=== PATIENT | female | born 1940 | race Caucasian/White ===

== ENCOUNTER 2019-02-09 02:40 | Inpatient (IN) ==
[2019-02-09] MEDS ORDERED: 0.9 % Sodium Chloride 1,000 ML IVC ONE (03:08)
[2019-02-09 03:35] LABS: Basophils # 0.1 K/mcL (0.0-0.2); Basophils % 0.3 %; Eosinophils # 0.2 K/mcL (0.0-0.6); Eosinophils % 1.4 %; Hematocrit 31.3 % (35.3-44.9); Hemoglobin 9.2 g/dL (11.5-15.4); Immature Granulocytes % 1.8 % (0-4); Lymphocytes # 1.4 K/mcL (0.6-4.6); Lymphocytes % 8.4 %; Mean Corpuscular HGB Conc 29.4 g/dL (31.6-35.5); Mean Corpuscular Hemoglobin 29.9 pg (28.0-33.3); Mean Corpuscular Volume 101.6 fL (83.0-100.0); Mean Platelet Volume 10.1 fL (9.4-12.4); Monocytes # 2.4 K/mcL (0.0-1.3); Neutrophils # 11.9 K/mcL (1.6-8.9); Platelet Count 228 K/mcL (140-400); Red Blood Count 3.08 M/mcL (3.82-4.97); Red Cell Distribution Width 17.9 % (11.5-14.5); Segmented Neutrophils % 73.1 %
[2019-02-09 03:47] LABS: INR 1.4; Prothrombin Time 15.3 Seconds (9.4-12.1)
[2019-02-09 03:50] LABS: Activated Partial Thrombo Time 31.1 Seconds (26.0-36.0)
[2019-02-09] MEDS: 0.9 % Sodium Chloride 1,000 ML ONE ×2 (03:50→05:11)
[2019-02-09] MEDS: 0.9 % Sodium Chloride 1,000 ML IVC SCH ×2 (03:50→05:13)
[2019-02-09 03:57] LABS: Albumin 3.1 g/dL (3.5-5.7); Albumin/Globulin Ratio 0.8 (1.1-2.2); Bilirubin,Direct 0.1 mg/dL (0.0-0.2); Bilirubin,Indirect 0.5 mg/dL (0.0-1.2); Bilirubin,Total 0.6 mg/dL (0.3-1.0); Magnesium 2.1 mg/dL (1.6-2.6); Phosphorous 5.4 mg/dL (2.7-4.5); Potassium 3.8 mEq/L (3.5-5.1); Total Protein 7.1 g/dL (6.4-8.9); Troponin I 0.03 ng/mL (< 0.04)
--- NOTE | 2019-02-09 04:17 | Emergency Department Note ---
Disposition Clinical Impression: Leukocytosis Qualifiers: Leukocytosis type: unspecified Qualified Code(s): D72.829 - Elevated white blood cell count, unspecified Anemia Qualifiers: Anemia type: unspecified type Qualified Code(s): D64.9 - Anemia, unspecified Disposition: Admitted As Inpatient Condition: Good General Adult HPI - General Chief complaint: ED General Medical Stated complaint: UTI / SEPSIS Time Seen by Provider: 02/09/19 02:47 Source: EMS Mode of arrival: EMS Limitations: altered mental status Nursing Notes Reviewed: Yes Vital Signs Reviewed: Yes - History of Present Illness HPI Narrative: 78-year-old from a local long term presents emergency department via EMS for evaluation of "possible UTI/sepsis". Patient is demented at baseline, history also includes chronic anemia, end-stage renal disease, hypertension, hyperlipidemia, hypothyroidism, cirrhosis, pelvic mass. Patient was recently admitted to our facility from 01/12/19 through 02/05/19. Patient is unable to give any detailed history, she states "I hurt". No real history given to us from the long term. Pain Scale: 0 - Related Data Home Medications Medication Instructions Recorded Confirmed Allopurinol [Zyloprim 100 MG] 100 mg PO BID 01/11/19 01/13/19 Cholecalciferol (Vitamin D3) 2,000 unit PO DAILY 01/11/19 01/13/19 [Vitamin D3] Gabapentin [Neurontin] 300 mg PO TID 01/11/19 01/13/19 Lactulose 20 gm PO DAILY PRN 01/11/19 01/13/19 Levothyroxine [Levothyroxine 137 mcg PO DAILY 01/11/19 01/13/19 Sodium] Sertraline [Zoloft] 100 mg PO DAILY 01/11/19 01/13/19 Metoprolol Tartrate [Lopressor] 50 mg PO BID 01/13/19 01/13/19 Previous Rx's Medication Instructions Recorded amLODIPine [Norvasc] 2.5 mg PO DAILY tablet 02/05/19 Allergies Allergy/AdvReac Type Severity Reaction Status Date / Time No Known Allergies Allergy Verified 02/09/19 04:34 Limitations: ROS unobtainable due to patients medical condition Past Medical History - Past Medical History Attestation: Yes The following information was validated with the patient. Source: old records reviewed Medical history: Reports: CHF, hepatitis, hyperlipidemia, hypertension, liver disease, renal disease, thyroid disease Surgical history: Reports: non-contributory Psychiatric history: Reports: no psych history - Social History Smoking Status: Never smoker Smokeless Tobacco Status: No Alcohol use: Reports: none Drug use: Reports: none Physical Exam - General Limitations: altered mental status General appearance: alert, in no apparent distress - Head Head exam: atraumatic, normocephalic, normal inspection - Eye Eye exam: Present: normal appearance - ENT ENT exam: mucous membranes dry - Neck Neck exam: Present: normal inspection, full ROM, trachea midline - Chest Chest inspection: Present: normal inspection, symmetric chest wall rise - Respiratory Respiratory exam: Present: normal lung sounds bilaterally - Cardiovascular Cardiovascular exam: Present: regular rate, normal rhythm, normal heart sounds - Abdominal Exam Abdominal exam: Present: soft, Non-Tender, normal bowel sounds - Extremities Exam Extremities exam: Present: normal inspection, full ROM. Absent: tenderness, pedal edema - Neurological Exam Neurological exam: Present: alert - Psychiatric Psychiatric exam: Present: normal affect, normal mood - Skin Skin exam: Present: warm, dry, intact, normal color Course Course Narrative: Nontoxic appearing female in no acute distress. She does appear dry, lips are slightly chapped. She arrives slightly hypotensive with systolic of 90, afebrile, non-tachycardic. EKG upon arrival which was completed 03:09 reveals a sinus rhythm with a chloride of 68 bpm, NM interval 166 seconds, QTC 414 ms. No evidence of ischemia, no acute change from previous which was completed on 01/12/19. Patient examination is unremarkable. She is demented, she answers questions not oriented. No evidence of infection to the skin. No abdominal pain, no peritoneal signs, no meningeal signs. Patient's recent admission, she was treated for hepatitis A, she was anemic which did require blood transfusions. She does have CHF which she also had an echo that shows 65% EF of 01/24. She was seen by gastrology, plan for an EGD due to the anemia requiring transfusion, during the previous admission the EGD did not happen. Patient has had recent UAs with an unremarkable culture, she does still make urine. She had a permacath placed while she was here previously. Due to his level of dementia being unknown, unknown ailments at the long term, hypertension we will complete sepsis workup, CT head, abdomen, chest x- ray. We will initiate fluid resuscitation for the hypotension. Patient is end- stage renal disease however, blood pressure is considerably lower than appears to be her baseline from previous admission. Will monitor fluid status to continue to monitor. - Reevaluation(s) Reevaluation #1: Labs returned with an elevated white blood cell count 16.2, patient with a chronic leukocytosis most likely related to the pelvic mass). Slightly above her baseline has been documented hemoglobin returns at 9.2, it was 10.2 and 5/1. Patient was transfused last time she was here for an anemia, most likely blood loss. There is a plan for EGD though this never did occur. CT the abdomen and pelvis, head all returned unremarkable, chest x-ray reveals pulmonary edema. We are still currently pending a UA as patient is in stay child. Does not make much urine, we have been unable to get it thus far. Vital signs are slowly impr oving with an increase in blood pressure with fluids being given. Headaches, visual change, diarrhea, vomiting. Workup benign for infectious etiology, patient is a 1 g drop in her hemoglobin, she has needed transfusions before. At this time disposition is plan for admission due to the drop in hem oglobin. Physical examination considerably unremarkable. Patient is alert, she does answer questions though sometimes they are coherent and other times they are not. Did discuss admission with her. Family has been notified by the long term patient's transfer to the hospital. I did speak with hospitalist Dr. Lawson, plan admission for the anemia, leukocytosis. Cultures of blood and urine have been ordered and continue to pen. Patient without any acute needs at this time. Time: 06:00 Vital Signs Temperature 98.8 F 02/09/19 02:48 Pulse Rate 71 02/09/19 02:48 Respiratory Rate 20 02/09/19 02:48 Blood Pressure 90/62 02/09/19 02:48 O2 Sat by Pulse Oximetry 88 02/09/19 02:48 Temperature 98.4 F 02/09/19 18:53 Pulse Rate 74 02/09/19 18:53 Respiratory Rate 18 02/09/19 18:53 Blood Pressure 98/54 02/09/19 18:53 O2 Sat by Pulse Oximetry 95 02/09/19 18:53 Oxygen Delivery Oxygen Delivery Nasal Cannula Medical Decision Making - Medical Records Medical records reviewed: Yes I reviewed the patient's medical records. - Lab Data Lab results reviewed: Yes I reviewed the patient's lab results. Result diagrams: 02/09/19 18:29 02/09/19 03:15 Lab Results 02/09/19 02/09/19 02/09/19 Range/Units 03:15 03:15 03:15 WBC 16.2 H (4.3-11.1) K/mcL RBC 3.08 L (3.82-4.97) M/mcL Hgb 9.2 L (11.5-15.4) g/dL Hct 31.3 L (35.3-44.9) % MCV 101.6 H (83.0-100.0) fL MCH 29.9 (28.0-33.3) pg MCHC 29.4 L (31.6-35.5) g/dL RDW 17.9 H (11.5-14.5) % Plt Count 228 (140-400) K/mcL MPV 10.1 (9.4-12.4) fL Immature Gran % 1.8 (0-4) % Seg Neutrophils % 73.1 % Lymphocytes % 8.4 % Monocytes % 15.0 % Eosinophils % 1.4 % Basophils % 0.3 % Neutrophils # 11.9 H (1.6-8.9) K/mcL Lymphocytes # 1.4 (0.6-4.6) K/mcL Monocytes # 2.4 H (0.0-1.3) K/mcL Eosinophils # 0.2 (0.0-0.6) K/mcL Basophils # 0.1 (0.0-0.2) K/mcL PT 15.3 H (9.4-12.1) Seconds INR 1.4 APTT 31.1 (26.0-36.0) Seconds Sodium 137 (136-145) mEq/L Potassium 3.8 (3.5-5.1) mEq/L Chloride 98 (98-107) mEq/L Carbon Dioxide 28 (23-29) mEq/L BUN 24 H (8-23) mg/dL Creatinine 5.31 H (0.60-1.20) mg/dL Est GFR ( Amer) 9 L (> 60) Est GFR (Non-Af Amer) 8 L (> 60) BUN/Creatinine Ratio 5 L (6-26) Glucose 97 (70-105) mg/dL Calculated Osmolality 288 (280-300) Lactic Acid (0.5-2.2) mmol/L Calcium 9.0 (8.6-10.3) mg/dL Phosphorus 5.4 H (2.7-4.5) mg/dL Magnesium 2.1 (1.6-2.6) mg/dL Total Bilirubin 0.6 (0.3-1.0) mg/dL Direct Bilirubin 0.1 (0.0-0.2) mg/dL Indirect Bilirubin 0.5 (0.0-1.2) mg/dL AST 45 H (13-39) Units/L ALT 4 L (7-52) Units/L Alkaline Phosphatase 60 (34-104) Units/L Troponin I 0.03 (< 0.04) ng/mL C-Reactive Protein 139 H (Less than 10) mg/L Serum Total Protein 7.1 (6.4-8.9) g/dL Albumin 3.1 L (3.5-5.7) g/dL Globulin 4.0 H (2.4-3.5) g/dL Albumin/Globulin Ratio 0.8 L (1.1-2.2) Blood Type Antibody Screen 02/09/19 02/09/19 Range/Units 03:15 05:25 WBC (4.3-11.1) K/mcL RBC (3.82-4.97) M/mcL Hgb (11.5-15.4) g/dL Hct (35.3-44.9) % MCV (83.0-100.0) fL MCH (28.0-33.3) pg MCHC (31.6-35.5) g/dL RDW (11.5-14.5) % Plt Count (140-400) K/mcL MPV (9.4-12.4) fL Immature Gran % (0-4) % Seg Neutrophils % % Lymphocytes % % Monocytes % % Eosinophils % % Basophils % % Neutrophils # (1.6-8.9) K/mcL Lymphocytes # (0.6-4.6) K/mcL Monocytes # (0.0-1.3) K/mcL Eosinophils # (0.0-0.6) K/mcL Basophils # (0.0-0.2) K/mcL PT (9.4-12.1) Seconds INR APTT (26.0-36.0) Seconds Sodium (136-145) mEq/L Potassium (3.5-5.1) mEq/L Chloride (98-107) mEq/L Carbon Dioxide (23-29) mEq/L BUN (8-23) mg/dL Creatinine (0.60-1.20) mg/dL Est GFR ( Amer) (> 60) Est GFR (Non-Af Amer) (> 60) BUN/Creatinine Ratio (6-26) Glucose (70-105) mg/dL Calculated Osmolality (280-300) Lactic Acid 1.4 (0.5-2.2) mmol/L Calcium (8.6-10.3) mg/dL Phosphorus (2.7-4.5) mg/dL Magnesium (1.6-2.6) mg/dL Total Bilirubin (0.3-1.0) mg/dL Direct Bilirubin (0.0-0.2) mg/dL Indirect Bilirubin (0.0-1.2) mg/dL AST (13-39) Units/L ALT (7-52) Units/L Alkaline Phosphatase (34-104) Units/L Troponin I (< 0.04) ng/mL C-Reactive Protein (Less than 10) mg/L Serum Total Protein (6.4-8.9) g/dL Albumin (3.5-5.7) g/dL Globulin (2.4-3.5) g/dL Albumin/Globulin Ratio (1.1-2.2) Blood Type A POSITIVE Antibody Screen NEGATIVE - Radiology Data Radiology results reviewed: Yes I reviewed the patient's radiology results. 78-year-old nontoxic-appearing female with baseline dementia. detention concerned for infection as patient was more confused than normal. Workup included labs, chest x-ray, head CT, abdomen and pelvis CT, all unremarkable for infectious etiology or acute abnormality. Labs did reveal 1 g drop in hemoglobin, she is require blood transfusion before and was unable to complete the EGD and workup previously, admitted to hospital for the anemia and continuation of care. Chest X-Ray 02/09/19 03:37 IMPRESSION: Pulmonary edema. D/ / Kentrell Martinez MD / Kentrell Martinez MD Interpreting Provider: Kentrell Martinez MD Head CT 02/09/19 03:37 IMPRESSION: 1. No acute intracranial abnormality. 2. Diffuse cerebral atrophy with chronic small vessel ischemic disease. D/ / Alejo Bryson MD / Alejo Bryson MD Interpreting Provider: Alejo Bryson MD Abdomen/Pelvis CT 02/09/19 04:04 IMPRESSION: 1. No change in the poorly defined soft tissue in the pelvis. This may simply represent unopacified small bowel though a repeat examination with both intravenous and oral contrasts is once again recommended for further evaluation. 2. No acute findings in the abdomen or pelvis. D/ / Kentrell Matrinez MD / Kentrell Martinez MD Interpreting Provider: Kentrell Martinez MD Attestation Statement - Attestation Attestation: I, Montez Parker DO have provided [id number] time during the care of this patient. Detailed review the presentation, symptoms, medical history were discussed and reviewed with the advanced practice provider Lilli Gatica/[employer]. Medical intervention labs and imaging studies were reviewed in detail. See full documentation of physical exam and course of care in the advanced practice provider's note. I agree with the determined course of care, medical intervention and disposition put forth by the advanced practice provider. See below documentation for changes or alterations in documentation.
--- NOTE | 2019-02-09 04:38 | Emergency Department Note ---
Disposition Clinical Impression: Leukocytosis Qualifiers: Leukocytosis type: unspecified Qualified Code(s): D72.829 - Elevated white blood cell count, unspecified Anemia Qualifiers: Anemia type: unspecified type Qualified Code(s): D64.9 - Anemia, unspecified Disposition: Admitted As Inpatient Condition: Good Time of Disposition: 06:25 General Adult HPI - General Chief complaint: ED General Medical Stated complaint: UTI / SEPSIS Time Seen by Provider: 02/09/19 02:47 Source: EMS Mode of arrival: EMS Limitations: altered mental status - History of Present Illness Pain Scale: 0 - Related Data Home Medications Medication Instructions Recorded Confirmed Allopurinol [Zyloprim 100 MG] 100 mg PO BID 01/11/19 01/13/19 Cholecalciferol (Vitamin D3) 2,000 unit PO DAILY 01/11/19 01/13/19 [Vitamin D3] Gabapentin [Neurontin] 300 mg PO TID 01/11/19 01/13/19 Lactulose 20 gm PO DAILY PRN 01/11/19 01/13/19 Levothyroxine [Levothyroxine 137 mcg PO DAILY 01/11/19 01/13/19 Sodium] Sertraline [Zoloft] 100 mg PO DAILY 01/11/19 01/13/19 Metoprolol Tartrate [Lopressor] 50 mg PO BID 01/13/19 01/13/19 Previous Rx's Medication Instructions Recorded amLODIPine [Norvasc] 2.5 mg PO DAILY tablet 02/05/19 Allergies Allergy/AdvReac Type Severity Reaction Status Date / Time No Known Allergies Allergy Verified 02/09/19 04:34 Past Medical History - Past Medical History Medical history: Reports: CHF, hepatitis, hyperlipidemia, hypertension, liver disease, renal disease, thyroid disease Surgical history: Reports: non-contributory Psychiatric history: Reports: no psych history - Social History Smoking Status: Never smoker Smokeless Tobacco Status: No Alcohol use: Reports: none Drug use: Reports: none Physical Exam - General Limitations: altered mental status General appearance: alert, in no apparent distress Course Vital Signs Temperature 98.8 F 02/09/19 02:48 Pulse Rate 71 02/09/19 02:48 Respiratory Rate 20 02/09/19 02:48 Blood Pressure 90/62 02/09/19 02:48 O2 Sat by Pulse Oximetry 88 02/09/19 02:48 Temperature 98.8 F 02/09/19 02:48 Pulse Rate 70 02/09/19 05:36 Respiratory Rate 24 02/09/19 05:36 Blood Pressure 105/57 02/09/19 05:36 O2 Sat by Pulse Oximetry 95 02/09/19 05:36 Oxygen Delivery Oxygen Delivery Nasal Cannula Medical Decision Making - Lab Data Result diagrams: 02/09/19 03:15 02/09/19 03:15 Lab Results 02/09/19 02/09/19 02/09/19 Range/Units 03:15 03:15 03:15 WBC 16.2 H (4.3-11.1) K/mcL RBC 3.08 L (3.82-4.97) M/mcL Hgb 9.2 L (11.5-15.4) g/dL Hct 31.3 L (35.3-44.9) % MCV 101.6 H (83.0-100.0) fL MCH 29.9 (28.0-33.3) pg MCHC 29.4 L (31.6-35.5) g/dL RDW 17.9 H (11.5-14.5) % Plt Count 228 (140-400) K/mcL MPV 10.1 (9.4-12.4) fL Immature Gran % 1.8 (0-4) % Seg Neutrophils % 73.1 % Lymphocytes % 8.4 % Monocytes % 15.0 % Eosinophils % 1.4 % Basophils % 0.3 % Neutrophils # 11.9 H (1.6-8.9) K/mcL Lymphocytes # 1.4 (0.6-4.6) K/mcL Monocytes # 2.4 H (0.0-1.3) K/mcL Eosinophils # 0.2 (0.0-0.6) K/mcL Basophils # 0.1 (0.0-0.2) K/mcL PT 15.3 H (9.4-12.1) Seconds INR 1.4 APTT 31.1 (26.0-36.0) Seconds Sodium 137 (136-145) mEq/L Potassium 3.8 (3.5-5.1) mEq/L Chloride 98 (98-107) mEq/L Carbon Dioxide 28 (23-29) mEq/L BUN 24 H (8-23) mg/dL Creatinine 5.31 H (0.60-1.20) mg/dL Est GFR ( Amer) 9 L (> 60) Est GFR (Non-Af Amer) 8 L (> 60) BUN/Creatinine Ratio 5 L (6-26) Glucose 97 (70-105) mg/dL Calculated Osmolality 288 (280-300) Lactic Acid (0.5-2.2) mmol/L Calcium 9.0 (8.6-10.3) mg/dL Phosphorus 5.4 H (2.7-4.5) mg/dL Magnesium 2.1 (1.6-2.6) mg/dL Total Bilirubin 0.6 (0.3-1.0) mg/dL Direct Bilirubin 0.1 (0.0-0.2) mg/dL Indirect Bilirubin 0.5 (0.0-1.2) mg/dL AST 45 H (13-39) Units/L ALT 4 L (7-52) Units/L Alkaline Phosphatase 60 (34-104) Units/L Troponin I 0.03 (< 0.04) ng/mL Serum Total Protein 7.1 (6.4-8.9) g/dL Albumin 3.1 L (3.5-5.7) g/dL Globulin 4.0 H (2.4-3.5) g/dL Albumin/Globulin Ratio 0.8 L (1.1-2.2) /02/23 Range/Units 03:15 WBC (4.3-11.1) K/mcL RBC (3.82-4.97) M/mcL Hgb (11.5-15.4) g/dL Hct (35.3-44.9) % MCV (83.0-100.0) fL MCH (28.0-33.3) pg MCHC (31.6-35.5) g/dL RDW (11.5-14.5) % Plt Count (140-400) K/mcL MPV (9.4-12.4) fL Immature Gran % (0-4) % Seg Neutrophils % % Lymphocytes % % Monocytes % % Eosinophils % % Basophils % % Neutrophils # (1.6-8.9) K/mcL Lymphocytes # (0.6-4.6) K/mcL Monocytes # (0.0-1.3) K/mcL Eosinophils # (0.0-0.6) K/mcL Basophils # (0.0-0.2) K/mcL PT (9.4-12.1) Seconds INR APTT (26.0-36.0) Seconds Sodium (136-145) mEq/L Potassium (3.5-5.1) mEq/L Chloride (98-107) mEq/L Carbon Dioxide (23-29) mEq/L BUN (8-23) mg/dL Creatinine (0.60-1.20) mg/dL Est GFR ( Amer) (> 60) Est GFR (Non-Af Amer) (> 60) BUN/Creatinine Ratio (6-26) Glucose (70-105) mg/dL Calculated Osmolality (280-300) Lactic Acid 1.4 (0.5-2.2) mmol/L Calcium (8.6-10.3) mg/dL Phosphorus (2.7-4.5) mg/dL Magnesium (1.6-2.6) mg/dL Total Bilirubin (0.3-1.0) mg/dL Direct Bilirubin (0.0-0.2) mg/dL Indirect Bilirubin (0.0-1.2) mg/dL AST (13-39) Units/L ALT (7-52) Units/L Alkaline Phosphatase (34-104) Units/L Troponin I (< 0.04) ng/mL Serum Total Protein (6.4-8.9) g/dL Albumin (3.5-5.7) g/dL Globulin (2.4-3.5) g/dL Albumin/Globulin Ratio (1.1-2.2) Attestation Statement - Attestation Attestation: I, Montez Parker DO have provided [id number] time during the care of this patient. Detailed review the presentation, symptoms, medical history were discussed and reviewed with the advanced practice provider Lilli Gatica/[employer]. Medical intervention labs and imaging studies were reviewed in detail. See full documentation of physical exam and course of care in the advanced practice provider's note. I agree with the determined course of care, medical intervention and disposition put forth by the advanced practice provider. See below documentation for changes or alterations in documentation. 78-year-old female presents emergency room from [facility] facility for concern of confusion and urinary tract infection. Patient was just discharged on February 05 from this facility after being an inpatient in the hospital for almost 1 month. On arrival here the patient is confused. Her blood pressure is labile. Her heart rate is normal. Patient is denying any falls trauma or injury. Denies any fevers or chills at home. She has not had any nausea vomiting or diarrhea. No headache no vision change. Denies any new medications or change in medications over the last several days. Head is atraumatic. Pupils are equal and reactive. Extraocular muscles are intact. Mucous membranes are dry. Oropharynx is patent. Trachea is midline. No murmurs auscultated on exam. Heart rate is normal. Lungs are clear. Abdomen is soft nontender nondistended with no point tenderness guarding or rigidity on initial physical exam. Patient denies any burning with urination. She does have anterior right-sided chest wall port in place for dialysis. No redness warmth or erythema is noted on my evaluation. Beckett otherwise normal. No signs of pitting edema. Urinalysis along with CBC chemistry troponin will be collected. Blood cultures will be added on. CT imaging of the head along with CT of the abdomen and chest x-ray will be ordered secondary to the patient's confusion and possible urinary tract infection and as well as multiple medical issues that were noted during the previous hospitalization. Disposition to be determined once full workup and treatment course I been established. See detailed documentation the physical exam, medical intervention, medical decision-making disposition in the advanced practice provider's note. 0600 Patient has elevated white blood cell count. No other acute etiology noted on CT the head or CT the abdomen. Patient is a 1 g drop in her hemoglobin. She was admitted for blood transfusions in the past. Otherwise patient's mentation appears to be at baseline. She has no acute infectious source noted at this point. Patient was discussed with the hospitalist Dr. Lawson and recommended no antibiotics at this time. Patient will be monitored here the emergency department to the admission process is completed. So this could be secondary to the patient's baseline dementia as well as possible other metabolic derangements. She will be monitored here in the emergency department during the treatment course. Patient is otherwise stable at this time.
[2019-02-09] MEDS ORDERED: Naloxone 0.4 MG/ML INJ IVP PRN (07:25)
[2019-02-09 07:58] LABS: Immature Reticulocyte % 22.8 % (11.0-38.0); Retculocyte # 0.09 M/mcL (0.05-0.10); Reticulocyte % 3.2 % (1.6-2.8)
[2019-02-09] MEDS ORDERED: Vancomycin 1 EACH in EMPTY BAG 1 EACH IVPB SCH (08:00)
[2019-02-09] MEDS: Piperacillin/Tazobactam 3.375 GM in 0.9 % Sodium Chloride Mini Bag 100 ML IVPB SCH ×2 (08:11→18:11)
--- NOTE | 2019-02-09 08:12 | Internal Med History&Physical ---
Date of Encounter: 02/09/19 Time of Encounter: 07:00 Internal Medicine - H&P: HPI Chief complaint: AMS Admitted From: Long-term Nursing Facility Plans for Post Hospital Care: Transfer [facility] History of present illness: Ms. Justin Bowers is a 78 year old female with history of cirrhosis, ESRD on HD, HFpEF 65% and pelvic mass following at [facility] who presented to the ED with complaint of AMS. history is limited due to mental status. most of the history was obtained chart. as per chart review she was recently admitted to [facility] in january and discharged on february 05. she was treated for acute metabolic encephal opathy secondary to PNA and UTI with improvement of her mental status. she has a known pelvic mass and as per oncology recs and chart review she was to follow with [facility] for further evaluation and biopsy of the mass. last admission she was also found to have cirrhosis and acute hepatitis A infection and G was consulted who recommended conservative management. in the ED she was found to have leukocytosis with neutrophilic predominance and she complained of burning and pain while urinating. she was endorsed for admission for UTI and acute encephalopathy. CT head in the ED negative for any acute disease. patient was seen and examined at bedside axox0, unable to provide any information. but when asked if she has pain she points to her pelvic region. how she is feeling she responds "have my son bring me a six pack". as per chart review on 02/05 she was axox3. nursing staff who know the patient well from her prolonged hospitaliation report that last admission she was confused similar to this time which improved as her UTI resolved. as per chart review palliative was consulted on last admission and as per last note code status was full. Past Med Surg Social Fam HX - Past Medical History Medical history: CHF, hepatitis, hyperlipidemia, hypertension, liver disease, renal disease, thyroid disease Additional medical history: unable to ask patient her medical hx, shes not a/o x3 to answer qustions. Psychiatric history: no psych history - Past Surgical History Surgical History: non-contributory Additional surgical history: unable to ask patient her medical hx, shes not a/o x3 to answer qustions. - Social History Smoking Status: Never smoker Smokeless Tobacco Status: No Alcohol use: none Drug use: none Internal Medicine - H&P: Meds Allopurinol [Zyloprim 100 MG] 100 mg PO BID 01/11/19 [History] Cholecalciferol (Vitamin D3) [Vitamin D3] 2,000 unit PO DAILY 01/11/19 [History] Gabapentin [Neurontin] 300 mg PO TID 01/11/19 [History] Lactulose 20 gm PO DAILY PRN 01/11/19 [History] Levothyroxine [Levothyroxine Sodium] 137 mcg PO DAILY 01/11/19 [History] Sertraline [Zoloft] 100 mg PO DAILY 01/11/19 [History] Metoprolol Tartrate [Lopressor] 50 mg PO BID 01/13/19 [History] amLODIPine [Norvasc] 2.5 mg PO DAILY tablet 02/05/19 [Rx] Allergy/AdvReac Type Severity Reaction Status Date / Time No Known Allergies Allergy Verified 02/09/19 04:34 ROS unobtainable: due to mental status All Systems PM: unable to obtain due to mental status - Constitutional Vitals: Temp Pulse Resp BP Pulse Ox 98.8 F 70 24 105/57 95 02/09/19 02:48 02/09/19 05:36 02/09/19 05:36 02/09/19 05:36 02/09/19 05:36 Exam: General: Patient is pale, not oriented however alert, speech is comprehendible however she is confused. Head: atraumatic, normocephalic, Eye: normal appearance, PERRL, no scleral icterus, no conjunctival injection ENT: mucous membranes moist, normal external ear exam Neck: normal inspection, trachea midline, full ROM, no neck stiffness Chest: normal inspection, symmetric chest rise Respiratory: decreased breasth sounds secondary to body habitus crackles in the posterior chest no wheezing Cardiovascular: distant heart sounds secondary to body habitus, Regular rate and rhythm. s1 and s2 Abdomen: obese, Bowel sounds present normoactive x-4 quadrants. Abdomen is soft, nondistended. no Epigastric tenderness. No guarding or rebound. No organomegaly noted, obese musculoskeletal: Spontaneously moving all extremities. no edema, no calf tenderness Skin: warm, dry, intact. Neuro: Alert and oriented x0 confused, speech in comprehendible. she is moving all extremities, CN2-12 intact, has tremors on out stretched hands Psych: Patient's affect is normal Internal Med - H&P Results - Labs CBC & Chem 7: 02/09/19 03:15 02/09/19 03:15 Labs: Short CBC 02/09/19 Range/Units 03:15 WBC 16.2 H (4.3-11.1) K/mcL Hgb 9.2 L (11.5-15.4) g/dL Hct 31.3 L (35.3-44.9) % Plt Count 228 (140-400) K/mcL Neutrophils # 11.9 H (1.6-8.9) K/mcL BMP 02/09/19 03:15 Sodium 137 Potassium 3.8 Chloride 98 Carbon Dioxide 28 BUN 24 H Creatinine 5.31 H Glucose 97 Calcium 9.0 Cardiac Enzymes 02/09/19 Range/Units 03:15 Troponin I 0.03 (< 0.04) ng/mL Liver Function 02/09/19 Range/Units 03:15 Total Bilirubin 0.6 (0.3-1.0) mg/dL Direct Bilirubin 0.1 (0.0-0.2) mg/dL AST 45 H (13-39) Units/L ALT 4 L (7-52) Units/L Alkaline Phosphatase 60 (34-104) Units/L Albumin 3.1 L (3.5-5.7) g/dL - EKG Data -: EKG Interpreted by Myself EKG shows normal: sinus rhythm (PAC, nonspecific ST-t changes ) - EKG Data Prior EKG available for review: yes When compared to previous EKG: there is no significant change - Impressions ITS Impressions Chest X-Ray 02/09/19 03:37 IMPRESSION: Pulmonary edema. D/ / Kentrell Martinez MD / Kentrell Martinez MD Interpreting Provider: Kentrell Martinez MD Head CT 02/09/19 03:37 IMPRESSION: 1. No acute intracranial abnormality. 2. Diffuse cerebral atrophy with chronic small vessel ischemic disease. D/ / Alejo Bryson MD / Alejo Bryson MD Interpreting Provider: Alejo Bryson MD Abdomen/Pelvis CT 02/09/19 04:04 IMPRESSION: 1. No change in the poorly defined soft tissue in the pelvis. This may simply represent unopacified small bowel though a repeat examination with both intravenous and oral contrasts is once again recommended for further evaluation. 2. No acute findings in the abdomen or pelvis. D/ / Kentrell Martinez MD / Kentrell Martinez MD Interpreting Provider: Kentrell Martinez MD - Assessment and Plan (1) Acute encephalopathy Current Visit: Yes Status: Acute Assessment and plan: acute encephalopathy most likley from hyperammonemia/ cirrhosis and UTI ruled out acute stroke head CT negative for acute abnormality in the ED was recently admitted for similar symptoms which improvement after UTI was treated ammonia and UA STAT started on broad spectrum Abx ( has history of UTI with Ecoli and enterococcus) neurochecks Q4H thiamine and folic acid procalcitonin, ESR and CRP TSH, cortisol level ordered aspiration, fall, seizure precautions NPO except meds - [employer] consulted . elevate HOB if no improvement in mental status or if she develops fever consider LP Ct head 02/09/2019- IMPRESSION: 1. No acute intracranial abnormality. 2. Diffuse cerebral atrophy with chronic small vessel ischemic disease. MRI 01/2019- IMPRESSION: No acute intracranial abnormality. Mild to moderate chronic microvascular ischemic disease. (2) Diastolic CHF Current Visit: No Status: Acute Assessment and plan: acute on chronic diastolic HF EF was 65% in january CXR with pulmonary edema nephrology consulted for dialysis continue with home medications if not CI fluid restriction TTE on 01/2019 Impressions: LVEF 65%. Indeterminate diastolic function. Normal right ventricular structure and function. Moderate mitral regurgitation. Moderate-severe tricuspid regurgitation. Mild pulmonic regurgitation. Moderate pulmonary hypertension. Qualifiers: Heart failure chronicity: acute on chronic Qualified Code(s): I50.33 - Acute on chronic diastolic (congestive) heart failure (3) ESRD (end stage renal disease) on dialysis Current Visit: Yes Status: Acute Assessment and plan: ESRD on dialysis [facility] Nephrology requested perm-a-cath placement and placed 02/04/19 hyperphosphatemia secondry to ESRD nephrology consulted will follow recommendations. (4) Leukocytosis, unspecified Current Visit: Yes Status: Acute Assessment and plan: has had hronic leukocytosis was discharegd with wbc count of 15 on feb 05 2019 after finishing course of Abx for PNA currently WBC count is 16.2 with neutrophilic predominance ? secondary UTI ( has dysuria and burning) started on broad spectrum abx blood cx sent ESR, CRP, procalcitonin ordered consider ID consultation Qualifiers: Leukocytosis type: unspecified Qualified Code(s): D72.829 - Elevated white blood cell count, unspecified (5) Anemia Current Visit: Yes Status: Chronic Assessment and plan: Likely multifactorial, with CKD, anemia of chronic disease and possible underlying malignancy. Will continue to monitor H/H No acute bleeding reported at this time, FOBT was negative on last admission reticulocyte count, flaote, b12 and iron panel ordered continue to closely monitor and will transfuse if needed for Hgb<7 type and screen Qualifiers: Anemia type: unspecified type Qualified Code(s): D64.9 - Anemia, unspecified (6) UTI (urinary tract infection) Current Visit: No Status: Acute Assessment and plan: has symptoms of UTI, complains of pelvic pain and burning along with dysuria on zosyn UA ordered stat Qualifiers: Urinary tract infection type: site unspecified Hematuria presence: without hematuria Qualified Code(s): N39.0 - Urinary tract infection, site not specified (7) Cirrhosis Current Visit: No Status: Acute Assessment and plan: cirrhosis and recent hep A infection in january 2019 MELD-NA 19 and Child-Caraballo class B. AFP 3 on 01/13. RUQ US on last admission showed cirrhosis, no lesions noted, cholelithiasis. continue lactulose therapy, titrate for 3-4 BM daily Qualifiers: Hepatic cirrhosis type: unspecified hepatic cirrhosis Ascites presence: without ascites Qualified Code(s): K74.60 - Unspecified cirrhosis of liver (8) Hypothyroidism Current Visit: Yes Status: Acute Assessment and plan: TSH ordered continue with synthroid Qualifiers: Hypothyroidism type: acquired Qualified Code(s): E03.9 - Hypothyroidism, unspecified (9) Pelvic mass in female Current Visit: No Status: Chronic Assessment and plan: as seen on CT a/p on 02/09- full report below No tissue diagnosis as of yet as per previous documentation from last adission in January 2019 "Hypermetabolic pelvic mass noted on PET scan from [facility]. No GI source found on colonoscopy at [facility] on December 2018. Heterogeneous hypermetabolic activity noted in liver and lymph node in neck on pad scan at [facility]. Oncologist on board and plan to follow-up with [facility] oncology department " (10) Goals of care, counseling/discussion Current Visit: No Status: Acute Assessment and plan: palliative care consult will call Giovanni, contact information - and Home # [phone] code status was full on last admission jail prognosis is poor (11) DVT prophylaxis Current Visit: No Status: Acute Assessment and plan: scds - Time Spent With Patient Total time spent is greater than 50% in coordination of care (as documented) at patient's floor/unit and/or counseling patient:
[2019-02-09 08:40] LABS: Folate 6.3 ng/mL (3.0-16.0)
[2019-02-09 10:22] LABS: Thyroid Stimulating Hormone 2.41 mcIU/mL (0.340-5.600)
[2019-02-09] MEDS: Cholecalciferol (D-3) 1,000 UNIT TABLET PO SCH (10:36)
[2019-02-09] MEDS: Thiamine (B-1) 100 MG TABLET PO SCH (10:36)
[2019-02-09] MEDS: Folic Acid 1 MG TABLET PO SCH (10:36)
[2019-02-09] MEDS: Lactulose Oral Soln 20 GM/30 ML UDC PO SCH ×2 (10:37→20:10)
--- NOTE | 2019-02-09 17:34 | Nephrology Consult Note ---
Date of Encounter: 02/09/19 Time of Encounter: 12:00 Assessment and Plan (1) Acute encephalopathy Current Visit: Yes Status: Acute Per primary (2) Acute kidney injury superimposed on CKD Current Visit: No Status: Acute SCr consistent with continued CHANI which was HD dependent during last stay, will arrange for HD in the am with UF as tolerated Renal diet advised Lytes stable, phos at 5.4 is within acceptable range for renal failure (3) CKD (chronic kidney disease), stage IV Current Visit: No Status: Chronic Baseline GFR was in the 20s (4) Leukocytosis, unspecified Current Visit: Yes Status: Acute per primary team Qualifiers: Leukocytosis type: unspecified Qualified Code(s): D72.829 - Elevated white blood cell count, unspecified (5) Anemia Current Visit: Yes Status: Chronic Per primary, will monitor at 9.2 Qualifiers: Anemia type: unspecified type Qualified Code(s): D64.9 - Anemia, unspecified History of Present Illness - Reason for Consult Consult date: 02/09/19 Acute Kidney Injury Requesting physician: Anna Oliver - History of Present Illness 78 y o female with PMH of liver cirrhosis, ovarian cancer with known pelvic mass, HTN, CHF and HD dependent CHANI from last prolonged admission and just discharged, returning with altered mental status from [facility] just like previous stay. Renal consulted for dialysis managment. Pt seen and examined with no family at bedside. Pt is very confused and disoriented with most of the i nfomation obtained from records Past Med Surg Social Fam HX - Past Medical History Medical history: CHF, hepatitis, hyperlipidemia, hypertension, liver disease, renal disease, thyroid disease Additional medical history: unable to ask patient her medical hx, shes not a/o x3 to answer qustions. Psychiatric history: no psych history - Past Surgical History Surgical History: non-contributory Additional surgical history: unable to ask patient her medical hx, shes not a/o x3 to answer qustions. - Social History Smoking Status: Never smoker Smokeless Tobacco Status: No Alcohol use: none Drug use: none Medications and Allergies Allopurinol [Zyloprim 100 MG] 100 mg PO BID 01/11/19 [History] Cholecalciferol (Vitamin D3) [Vitamin D3] 2,000 unit PO DAILY 01/11/19 [History] Gabapentin [Neurontin] 300 mg PO TID 01/11/19 [History] Lactulose 20 gm PO DAILY PRN 01/11/19 [History] Levothyroxine [Levothyroxine Sodium] 137 mcg PO DAILY 01/11/19 [History] Sertraline [Zoloft] 100 mg PO DAILY 01/11/19 [History] Metoprolol Tartrate [Lopressor] 50 mg PO BID 01/13/19 [History] amLODIPine [Norvasc] 2.5 mg PO DAILY tablet 02/05/19 [Rx] Allergy/AdvReac Type Severity Reaction Status Date / Time No Known Allergies Allergy Verified 02/09/19 04:34 Review of Systems ROS unobtainable: due to mental status Exam - Vital Signs Vital signs: Initial Vital Signs Temp Pulse Resp BP Pulse Ox 98.8 F 71 20 90/62 88 02/09/19 02:48 02/09/19 02:48 02/09/19 02:48 02/09/19 02:48 02/09/19 02:48 Vital Signs - Last 8 Hours Temp Pulse Resp BP Pulse Ox 02/09/19 16:17 98.2 F 76 18 102/44 92 02/09/19 10:59 98.4 F 68 16 92/56 98 Intake and Output 02/09/19 02/09/19 02/09/19 07:59 15:59 23:59 Intake Total 1999 / 2590 590 / 2590 Balance 1999 / 2590 590 / 2590 Intake: IV Fluids 1999 / 2350 350 / 2350 0.9 % Sodium Chloride 1,000 ML 1999 / 1999 @ 999 mls/hr IVC .Q1H1M [facility] Rx# :[id number] Zosyn 3.375 GM In 0.9 % Sodium 100 / 100 Chloride (Mini-Bag +) 100 ML @ 25 mls/hr IVPB Q12HR [facility] Rx#: [id number] Vancocin 1,000 MG In 0.9 % 250 / 250 Sodium Chloride 250 ML @ 166. 667 mls/hr IVPB ONCE ONE Rx#: [id number] Oral 240 / 240 Other: Meal Breakfast Percent of Meal Consumed 95% Weight 93.259 kg 90.3 kg Blood Glucose* 97 Patient Weight 02/09/19 23:59 Weight 90.3 kg - General Appearance General appearance: chronically ill, fatigue, frail EENT: ATNC, mucous membranes dry Neck: no JVD, supple Additional Comments: good areation ant bilat Cardiology: no edema, normal S1, normal S2 - Dialysis Access Dialysis Vascular Access: Venous Catheter (permcath) Gastrointestinal: no tenderness, no guarding Integumentary: warm and dry Neurologic: confused, disoriented Musculoskeletal: no deformities Psychiatric: cooperative Results - Lab Results 02/09/19 03:15 02/09/19 03:15 Most recent lab results 02/09/19 03:15 Calcium 9.0 Phosphorus 5.4 H Magnesium 2.1 Consult Discharge Plan - Plan Referrals: Monalisa Schneider MD [Primary Care Provider] -
[2019-02-09] MEDS ORDERED: Acetaminophen 325 MG TABLET PO ONE (17:49)
[2019-02-09] MEDS ORDERED: Ketorolac 15 MG/ML VIAL IVP ONE (18:53)
[2019-02-09 18:55] LABS: Hemoglobin 9.3 g/dL (11.5-15.4)
[2019-02-10 02:40] LABS: Hematocrit 26.4 % (35.3-44.9); Hemoglobin 7.8 g/dL (11.5-15.4); Mean Corpuscular HGB Conc 29.5 g/dL (31.6-35.5); Mean Corpuscular Hemoglobin 30.1 pg (28.0-33.3); Mean Corpuscular Volume 101.9 fL (83.0-100.0); Mean Platelet Volume 10.2 fL (9.4-12.4); Platelet Count 218 K/mcL (140-400); Red Blood Count 2.59 M/mcL (3.82-4.97); Red Cell Distribution Width 17.5 % (11.5-14.5)
[2019-02-10 02:59] LABS: Calcium 8.5 mg/dL (8.6-10.3)
[2019-02-10] MEDS: Piperacillin/Tazobactam 3.375 GM in 0.9 % Sodium Chloride Mini Bag 100 ML IVPB SCH ×2 (06:36→18:51)
[2019-02-10] MEDS ORDERED: 0.9 % Sodium Chloride 2,000 ML ONE (08:38)
[2019-02-10] MEDS: Thiamine (B-1) 100 MG TABLET PO SCH (09:13)
[2019-02-10] MEDS: Lactulose Oral Soln 20 GM/30 ML UDC PO SCH ×3 (09:13→21:51)
[2019-02-10] MEDS: Folic Acid 1 MG TABLET PO SCH (09:13)
[2019-02-10] MEDS: Cholecalciferol (D-3) 1,000 UNIT TABLET PO SCH (09:13)
--- NOTE | 2019-02-10 10:45 | Electrocardiograph Report ---
[address] [place], [place] [address] Test Date: 2019-02-09 Pat Name: Monika Bowers Department: [id number] Room: 2A14 Gender: F Car Refinisher: : 1940 Requested By: Lilli Sanz Order Number: [id number] Reading MD: Hollie Thomas Measurements Intervals [place] Rate: 68 P: 46 KS: 166 QRS: -22 QRSD: 104 T: 127 QT: 389 QTc: 414 Interpretive Statements Sinus rhythm Atrial premature complex Borderline left axis deviation Nonspecific T abnrm, anterolateral leads Electronically Signed On 02-10-2019 10:43:58 EDT by Hollie Thomas
[2019-02-10] MEDS ORDERED: Vancomycin 500 MG in 0.9 % Sodium Chloride Mini Bag 100 ML IVPB ONE (11:10)
[2019-02-10] MEDS ORDERED: *HR* Heparin 10,000 UNIT/10 ML VIAL IV PRN ×2 (12:36)
[2019-02-10] MEDS ORDERED: 0.9 % Sodium Chloride 250 ML IVC PRN (12:36)
[2019-02-10] MEDS ORDERED: 0.9 % Sodium Chloride 1,000 ML PRIME SCH (12:45)
--- NOTE | 2019-02-10 14:31 | Internal Med Progress Note ---
Hospitalist Progress Note - Encounter Date of Encounter: 02/10/19 Time of Encounter: 14:28 - Subjective Interval History: I have seen and evaluated the patient at bedside. patient alert and oriented to person and place. reports supra-pubic abdominal pain, denies nausea, vomiting or shortness of breath. - Exam Vitals: Temp Pulse Resp BP Pulse Ox 99 F 78 18 114/56 98 02/10/19 10:21 02/10/19 10:21 02/10/19 10:21 02/10/19 13:00 02/10/19 10:21 Exam: Vitals: Reviewed. General: Alert and oriented x2. In mild distress due to abdominal pain Cardiovascular: RRR, normal S1 & S2, no rubs, murmurs or gallops. Lungs: CTA b/l, no wheezes or crackles. Abdomen: Obese, soft, mild tenderness to superficial palpation in the supra- pubic area, no rigidity. Extremities: No deformity, no edema or tenderness, no joint swelling or clubbing. Neurological: No focal neurological abnormalities Rest of the physical exam is non contributory - Assessment and Plan (1) Sepsis Current Visit: Yes Status: Acute Assessment and Plan: Possible secondary to urinary tract infection. Patient with leukocytosis, hypotensive and elevated prolactin level. We will continue empiric coverage with piperacillin/tazobactam, and vancomycin per pharmacy protocol. Blood cultures: No growth, pending final report. Discontinue antihypertensive medications. (2) Leukocytosis, unspecified Current Visit: Yes Status: Acute Assessment and Plan: Plan of care as above (3) UTI (urinary tract infection) Current Visit: No Status: Acute Assessment and Plan: Plan of care as per problem #1. (4) Cirrhosis Current Visit: No Status: Acute Assessment and Plan: ammonia within normal limit. no ascites seen on ct abdomen and pelvis. Continue lactulose 20 gm/PO BID, titrate for 2-3 BM a day (5) Diastolic CHF Current Visit: No Status: Acute Assessment and Plan: Chest is clear to auscultation bilaterally. As per the nurse the patient has had minimal urinary output. Diuresis per nephrology recommendation. Patient on hemodialysis. (6) Anemia Current Visit: Yes Status: Chronic Assessment and Plan: Anemia of chronic disease. There has been a significant drop in H&H. We will repeat CBC at 5 PM, transfuse per protocol. Fecal occult blood test. (7) Pelvic mass in female Current Visit: No Status: Chronic Assessment and Plan: ct abd/pel w/o contrast Pelvis: There is a catheter in the bladder. Once again there is poorly defined soft tissue density in the pelvis. There is streak artifact from right hip arthroplasty device. per note. patient is to follow up at [facility] (8) Goals of care, counseling/discussion Current Visit: No Status: Acute (9) ESRD (end stage renal disease) on dialysis Current Visit: Yes Status: Acute Assessment and Plan: Continue renal replacement therapy per nephrology recommendation. Avoid nephrotoxic medication. (10) Acute encephalopathy Current Visit: Yes Status: Acute Assessment and Plan: Encephalopathy likely secondary to sepsis. Patient on broad-spectrum IV antibiotics. (11) Hypothyroidism Current Visit: Yes Status: Acute Assessment and Plan: On levothyroxine 137 mcg/PO daily DVT Prophylaxis: Hold heparin due to drop in H&H. Intermittent pneumatic compression for DVT prophylaxis. - Summary of Assessment and Plan Summary of Assessment and Plan: Patient to remain in the hospital due to encephalopathy, likely secondary to sepsis. On broad-spectrum antibiotics. - Time Spent with Patient Total time spent is greater than 50% in coordination of care (as documented) at patient's floor/unit and/or counseling patient: Greater than 35 minutes (45) Plan of Care Discussed with: nurse (the nurse) Internal Medicine: Result - Labs CBC & Chem 7: 02/10/19 01:44 02/10/19 01:44 Labs: Short CBC 02/09/19 02/10/19 Range/Units 18:29 01:44 WBC 18.3 H (4.3-11.1) K/mcL Hgb 9.3 L 7.8 L D (11.5-15.4) g/dL Hct 32.0 L 26.4 L (35.3-44.9) % Plt Count 218 (140-400) K/mcL BMP 02/10/19 01:44 Sodium 137 Potassium 4.0 Chloride 103 Carbon Dioxide 23 BUN 33 H Creatinine 6.02 H Glucose 92 Calcium 8.5 L - ABG Interpretation ABG results: PT/INR, D-dimer PT 15.3 Seconds (9.4-12.1) H 02/09/19 03:15 Consult Discharge Plan - Plan Referrals: Monalisa Schneider MD [Primary Care Provider] - (1) Sepsis Qualifiers: Sepsis type: sepsis due to unspecified organism Qualified Code(s): A41.9 - Sepsis, unspecified organism (2) Leukocytosis, unspecified Qualifiers: Leukocytosis type: unspecified Qualified Code(s): D72.829 - Elevated white blood cell count, unspecified (3) UTI (urinary tract infection) Qualifiers: Urinary tract infection type: site unspecified Hematuria presence: without hematuria Qualified Code(s): N39.0 - Urinary tract infection, site not specified (4) Cirrhosis Qualifiers: Hepatic cirrhosis type: unspecified hepatic cirrhosis Ascites presence: without ascites Qualified Code(s): K74.60 - Unspecified cirrhosis of liver (5) Diastolic CHF Qualifiers: Heart failure chronicity: acute on chronic Qualified Code(s): I50.33 - Acute on chronic diastolic (congestive) heart failure (6) Anemia Qualifiers: Anemia type: unspecified type Qualified Code(s): D64.9 - Anemia, unspecified (11) Hypothyroidism Qualifiers: Hypothyroidism type: acquired Qualified Code(s): E03.9 - Hypothyroidism, un specified
--- NOTE | 2019-02-10 17:24 | Nephrology Progress Note ---
Date of Encounter: 02/10/19 Time of Encounter: 16:00 - Assessment and Plan (1) Acute encephalopathy Current Visit: Yes Status: Acute (2) Acute kidney injury superimposed on CKD Current Visit: No Status: Acute (3) CKD (chronic kidney disease), stage IV Current Visit: No Status: Chronic (4) Leukocytosis, unspecified Current Visit: Yes Status: Acute Qualifiers: Leukocytosis type: unspecified Qualified Code(s): D72.829 - Elevated white blood cell count, unspecified (5) Anemia Current Visit: Yes Status: Chronic Qualifiers: Anemia type: unspecified type Qualified Code(s): D64.9 - Anemia, unspecified Subjective Interval history: Pt seen and examined on HD more interactive than earlier today in her room, Denies any complaints Objective - Vital Signs Vital signs: Vital Signs Temp Pulse Resp BP Pulse Ox 02/10/19 15:10 97.8 F 18 94/60 02/10/19 13:00 114/56 02/10/19 11:26 100/48 02/10/19 10:21 99 F 78 18 89/53 98 02/10/19 07:46 94 02/10/19 06:47 99.2 F 92 20 105/58 94 02/10/19 04:25 98.5 F 79 18 146/66 99 02/10/19 00:06 98.2 F 73 18 105/63 97 02/09/19 18:53 98.4 F 74 18 98/54 95 Intake and Output 02/10/19 02/10/19 02/10/19 07:59 15:59 23:59 Intake Total 100 / 920 820 / 920 Output Total 50 / 50 Balance 50 / 870 820 / 870 Intake: IV Fluids 100 / 200 100 / 200 Zosyn 3.375 GM In 0.9 % Sodium 100 / 200 100 / 200 Chloride (Mini-Bag +) 100 ML @ 25 mls/hr IVPB Q12HR [facility] Rx#: [id number] Oral 0 / 120 120 / 120 Intake, Rinseback and Flushes 600 / 600 Output: Catheter 50 / 50 Other: Meal Breakfast Percent of Meal Consumed 25% Stool Size Smear Stool Consistency loose Stool Characteristics Pasty Stool Color Brown # Bowel Movement Diapers 1 Weight 90.3 kg Hemodialysis Net Fluid Removed 0 (mL) Patient Weight 02/10/19 23:59 Weight 90.3 kg - Lab 02/10/19 01:44 02/10/19 01:44 Consult Discharge Plan - Plan Referrals: Monalisa Schneider MD [Primary Care Provider] -
[2019-02-10] MEDS: traMADol 50 MG TABLET PO PRN (18:18)
[2019-02-10 19:08] LABS: Hemoglobin 9.1 g/dL (11.5-15.4); Mean Corpuscular HGB Conc 30.3 g/dL (31.6-35.5); Mean Corpuscular Hemoglobin 30.1 pg (28.0-33.3); Mean Corpuscular Volume 99.3 fL (83.0-100.0); Mean Platelet Volume 10.1 fL (9.4-12.4); Platelet Count 234 K/mcL (140-400); Red Blood Count 3.02 M/mcL (3.82-4.97); Red Cell Distribution Width 17.5 % (11.5-14.5)
[2019-02-10 20:25] LABS: Bilirubin,Urine Small (Negative); Blood,Urine Large (Negative); Clarity,Urine Turbid (Clear); Color,Urine Red (Yellow); Glucose,Urine (UA) Normal (Normal); Ketones,Urine Trace mg/dL (Negative); Leukocyte Esterase,Urine Large (Negative); Nitrite,Urine Negative (Negative); Protein,Urine >=300 mg/dL (Neg-Trace); Urobilinogen,Urine Normal (Normal)
[2019-02-10 20:29] LABS: Bacteria,Urine None Seen per hpf (None-Few); Squamous Epithelial Cell,Urine Many per lpf (None-Few); WBC,Urine TNTC per hpf (0-3)
[2019-02-10 20:47] LABS: RBC,Urine TNTC per hpf (0-3)
[2019-02-10 20:48] LABS: Yeast,Urine Many per hpf (None Seen)
[2019-02-11] MEDS: Piperacillin/Tazobactam 3.375 GM in 0.9 % Sodium Chloride Mini Bag 100 ML IVPB SCH ×2 (06:29→17:25)
[2019-02-11] MEDS: traMADol 50 MG TABLET PO PRN (08:01)
[2019-02-11] MEDS: Cholecalciferol (D-3) 1,000 UNIT TABLET PO SCH (08:01)
[2019-02-11] MEDS: Thiamine (B-1) 100 MG TABLET PO SCH (08:01)
[2019-02-11] MEDS: Lactulose Oral Soln 20 GM/30 ML UDC PO SCH ×2 (08:01→20:25)
[2019-02-11] MEDS: Folic Acid 1 MG TABLET PO SCH (08:01)
[2019-02-11] MEDS ORDERED: Vancomycin 500 MG in 0.9 % Sodium Chloride Mini Bag 100 ML IVPB ONE (09:33)
[2019-02-11] MEDS ORDERED: traMADol 50 MG TABLET PO PRN (10:16)
[2019-02-11] MEDS ORDERED: OXYCODONE Oral CONC 10 MG/0.5 ML ORAL.SYG SL PRN (10:34)
--- NOTE | 2019-02-11 10:35 | Internal Med Progress Note ---
Hospitalist Progress Note - Encounter Date of Encounter: 02/11/19 Time of Encounter: 10:33 - Subjective Interval History: I have seen and evaluated the patient at bedside. Patient reports abdominal pain, stated the pain medications she is getting is not helping. denies nausea, vomiting or diarrhea. denies shortness of breath - Exam Vitals: Temp Pulse Resp BP Pulse Ox 98.6 F 73 14 129/65 97 02/11/19 07:10 02/11/19 07:10 02/11/19 07:10 02/11/19 07:10 02/11/19 07:38 Exam: Vitals: Reviewed. General: Alert and oriented x2. In mild to moderate distress due to abdominal pain Cardiovascular: RRR, normal S1 & S2, no rubs, murmurs or gallops. Lungs: CTA b/l, no wheezes or crackles. Abdomen: Obese, soft, tenderness to superficial palpation in the supra-pubic are a, no rigidity or guarding. Extremities: No deformity, no edema or tenderness, no joint swelling or clubbing. Neurological: No focal neurological abnormalities Rest of the physical exam is non contributory - Assessment and Plan (1) Sepsis Current Visit: Yes Status: Acute Assessment and Plan: due to UTI. worsening leukocitosis likely due to abdominal pain. patient hemodynamically stable. Hx of pansensitive E.coli in the urine. Plan will continue piperacillin/tazobactam 3.375mg/IV Q8HRs discontinue vancomycin ID has been consulted for antibiotics management blood culture: no growth, pending final report (2) Leukocytosis, unspecified Current Visit: Yes Status: Acute Assessment and Plan: plan of care as above (3) UTI (urinary tract infection) Current Visit: No Status: Acute Assessment and Plan: per problem #1 (4) Cirrhosis Current Visit: No Status: Acute Assessment and Plan: patient on lactulose 20mg/PO BID. (5) Diastolic CHF Current Visit: No Status: Chronic Assessment and Plan: patient not on acute exacerbation. on HD. fluids restriction to 1.5 litters a day. daily weight and strict intake and output (6) Anemia Current Visit: Yes Status: Chronic Assessment and Plan: H&H stable. will continue to monitor and transfuse per protocol. (7) Pelvic mass in female Current Visit: No Status: Chronic Assessment and Plan: associate with abdominal pain. Pelvic mass and as per oncology recs and chart review she was to follow with [facility] for further evaluation and biopsy of the mass. started on [place] 5-325mg/PO 1tab Q6HR PRN. will add oxycone 5mg/PO Q4HR PRN home medication (8) ESRD (end stage renal disease) on dialysis Current Visit: Yes Status: Acute Assessment and Plan: renal replacement therapy per nephrology recommendations. (9) Acute encephalopathy Current Visit: Yes Status: Resolved Assessment and Plan: likely due to sepsus. resolved. patient AOX3. (10) Hypothyroidism Current Visit: Yes Status: Acute Assessment and Plan: continue levothyroxine 137 mcg/PO daily DVT Prophylaxis: Heparin subq bid - Summary of Assessment and Plan Summary of Assessment and Plan: Patient to remain in the hospital due to sepsis on broad spectrum IV antibiotics - Time Spent with Patient Total time spent is greater than 50% in coordination of care (as documented) at patient's floor/unit and/or counseling patient: Greater than 35 minutes (40) Plan of Care Discussed with: patient (and the nurse.) Internal Medicine: Result - Labs CBC & Chem 7: 02/10/19 18:00 02/10/19 01:44 Labs: Short CBC 02/10/19 Range/Units 18:00 WBC 22.4 H (4.3-11.1) K/mcL Hgb 9.1 L (11.5-15.4) g/dL Hct 30.0 L (35.3-44.9) % Plt Count 234 (140-400) K/mcL Urine 02/10/19 Range/Units 19:55 Urine Color Red A (Yellow) Urine Clarity Turbid A (Clear) Urine pH 5.0 (5.0-8.0) pH Units Ur Specific [place] 1.030 H (1.010-1.025) Urine Protein >=300 H (Neg-Trace) mg/dL Urine Glucose (UA) Normal (Normal) mg/dL - ABG Interpretation ABG results: PT/INR, D-dimer PT 15.3 Seconds (9.4-12.1) H 02/09/19 03:15 Consult Discharge Plan - Plan Referrals: Monalisa Schneider MD [Primary Care Provider] - (1) Sepsis Qualifiers: Sepsis type: sepsis due to unspecified organism Qualified Code(s): A41.9 - Sepsis, unspecified organism (2) Leukocytosis, unspecified Qualifiers: Leukocytosis type: unspecified Qualified Code(s): D72.829 - Elevated white blood cell count, unspecified (3) UTI (urinary tract infection) Qualifiers: Urinary tract infection type: site unspecified Hematuria presence: without he maturia Qualified Code(s): N39.0 - Urinary tract infection, site not specified (4) Cirrhosis Qualifiers: Hepatic cirrhosis type: unspecified hepatic cirrhosis Ascites presence: without ascites Qualified Code(s): K74.60 - Unspecified cirrhosis of liver (5) Diastolic CHF Qualifiers: Heart failure chronicity: chronic Qualified Code(s): I50.32 - Chronic diastolic (congestive) heart failure (6) Anemia Qualifiers: Anemia type: unspecified type Qualified Code(s): D64.9 - Anemia, unspecified (10) Hypothyroidism Qualifiers: Hypothyroidism type: acquired Qualified Code(s): E03.9 - Hypothyroidism, unspecified
[2019-02-11] MEDS: *HR* HYDROcodone/Acet 5/325 mg TABLET PO PRN ×2 (11:49→22:38)
[2019-02-11] MEDS ORDERED: Aminoglycoside Consult 1 EACH MC ONE (12:19)
--- NOTE | 2019-02-11 13:43 | Infectious Disease Consult ---
Infectious Disease-Consult - Encounter Date/Time Date of Encounter: 02/11/19 Time of Encounter: 13:35 - Data of Consult Patient: new to practice Reason for consult: Sepsis. Possible UTI. Elevated ESR, CRP Consult date: 02/11/19 Requesting Physician: Abdon Watt MD Primary Care Provider: Monalisa Schneider MD - HPI HPI: Patient is a 78-year-old woman who presented to [facility] on 02/09/2019 for possible UTI/sepsis, we are consulted on 02/11/2019 for sepsis, possible urinary tract infection. Elevated ESR and CRP. Patient is a 78-year-old woman who was recently seen by us on 01/16/2019 for hep atitis A also has a history of hypertension, hyperlipidemia, chronic disease, congestive heart failure and liver cirrhosis apparently had altered mental status at the half-way and was transferred to [facility] for further evaluation. Patient is known to my service on previous admission she continued to have this altered mentation and persistent leukocytosis. Extensive workup really was nonrevealing other than cholelithiasis and the mass in her pelvis. Multiple times to stop the antibiotics. Patient was started on lactulose because she had high ammonia level initially. Since admission, MAXIMUM TEMPERATURE 100, no tachycardia and no tachypnea. Presenting labs revealed a WBC of 16.2 with 73% neutrophils no bands. Chemistry revealed BUN/Cr 24/5.31. Pro-calcitonin was 2.32, CRP 139 and ESR> 130. A urinalysis revealed pyuria, leukocyte esterase. Blood cultures 2 02/09/2019 no growth to date and a urine culture is still incubating. Imaging was done. Chest x-ray revealed pulmonary edema. CT head showed no acute intracranial abnormality and diffuse cerebellar atrophy with chronic small vessel ischemic disease and CT abdomen pelvis revealed no change in the poorly defined soft t issue in the pelvis. This may simply represent an opacified small bowel through a repeat examination with both intravenous and oral contrast. Patient was started on vancomycin, Zosyn and Levaquin. We were asked to evaluate the patient's make further recommendations. Currently patient laying in bed. Very hard to arouse. Really does not follow commands or answer questions. Physical exam is limited but she did have significant guarding on abdominal exam specially on the left upper and left l ower quadrant. Patient also seems to be third spacing with edema in upper and lower extremities. - ROS Review of Systems: limited review of systems due to patient's mentation - Results CBC & Chem 7: 02/10/19 18:00 02/10/19 01:44 - Exam Vitals: Temp Pulse Resp BP Pulse Ox 98.9 F 77 16 130/69 97 02/11/19 11:03 02/11/19 11:03 02/11/19 11:03 02/11/19 11:03 02/11/19 11:03 Exam: HEAD: Normocephalic atraumatic EYES: PERRLA, EOMI, no conjunctival hemorrhage, sclera anicteric ENT: Mucous membranes moist, no oral thrush NECK: Supple. No meningeal signs. No masses LUNGS: Chest expanding symmetrically. Lungs sounds audible both lung lozada. No wheezing, no rhonchi CV: RRR, S1S2, ABDOMEN: Soft, nontender, nondistended. Bowel sounds audible BACK: No CVA tenderness. Normal inspection. No tenderness over the spine EXTREMITY: Adequate perfusion. No joint effusion. SKIN: Normal color. No rash. NEURO: Awake alert oriented 3. No obvious focal deficit PSYCH: Calm and appropriate. No agitation. Allopurinol [Zyloprim 100 MG] 100 mg PO BID 01/11/19 [History] Cholecalciferol (Vitamin D3) [Vitamin D3] 2,000 unit PO DAILY 01/11/19 [History] Gabapentin [Neurontin] 300 mg PO TID 01/11/19 [History] Levothyroxine [Levothyroxine Sodium] 137 mcg PO DAILY 01/11/19 [History] Sertraline [Zoloft] 100 mg PO DAILY 01/11/19 [History] Metoprolol Tartrate [Lopressor] 50 mg PO BID 01/13/19 [History] amLODIPine [Norvasc] 2.5 mg PO DAILY tablet 02/05/19 [Rx] Oxycodone HCl [Roxybond] 5 mg PO Q4H PRN 02/10/19 [History] Allergy/AdvReac Type Severity Reaction Status Date / Time No Known Allergies Allergy Verified 02/09/19 04:34 - Assessment and Plan (1) Acute encephalopathy Current Visit: Yes Status: Resolved Etiology not clear CT abdomen pelvis negative No signs of meningitis on physical exam Could be secondary to metabolic encephalopathy versus Might benefit from neurological evaluation Consider an LP? SNOMED Code(s): 68810741, 689544989 (2) UTI (urinary tract infection) Current Visit: No Status: Acute So far urine culture negative Consider starting fluconazole for candiduria Once urine culture finalized recommend stopping all antibiotics and observing. Qualifiers: Urinary tract infection type: site unspecified Hematuria presence: without hematuria Qualified Code(s): N39.0 - Urinary tract infection, site not specified SNOMED Code(s): 79727939 (3) Cirrhosis of liver Current Visit: No Status: Chronic Qualifiers: Qualified Code(s): K74.60 - Unspecified cirrhosis of liver SNOMED Code(s): 52547178 (4) Abdominal pain Current Visit: No Status: Acute Etiology not clear CT abdomen and pelvis on admission 02/09/2019 done without contrast I am concerned for intra-abdominal process specially with her elevated LDH. Not sure if ischemic colitis on the differential. Qualifiers: Abdominal location: generalized Qualified Code(s): R10.84 - Generalized abdominal pain SNOMED Code(s): 50527317 (5) Pulmonary edema Current Visit: Yes Status: Acute Qualifiers: Chronicity: chronic Qualified Code(s): J81.1 - Chronic pulmonary edema SNOMED Code(s): 54982309 (6) Pelvic mass in female Current Visit: No Status: Chronic SNOMED Code(s): 50239924, 811905973 (7) Congestive heart failure Current Visit: No Status: Acute Qualifiers: Heart failure type: systolic Heart failure chronicity: acute Qualified Code(s): I50.21 - Acute systolic (congestive) heart failure SNOMED Code(s): 50949461 (8) CKD (chronic kidney disease), stage IV Current Visit: No Status: Chronic SNOMED Code(s): 014715825 Past Med Surg Social Fam HX - Past Medical History Medical history: CHF, hepatitis, hyperlipidemia, hypertension, liver disease, renal disease, thyroid disease Additional medical history: unable to ask patient her medical hx, shes not a/o x3 to answer qustions. Psychiatric history: no psych history - Past Surgical History Surgical History: non-contributory Additional surgical history: unable to ask patient her medical hx, shes not a/o x3 to answer qustions. - Social History Smoking Status: Never smoker Smokeless Tobacco Status: No Alcohol use: none Drug use: none Consult Discharge Plan - Plan Referrals: Monalisa Schneider MD [Primary Care Provider] -
[2019-02-11 17:34] LABS: Basophils % 0.3 %; Eosinophils # 0.2 K/mcL (0.0-0.6); Eosinophils % 1.4 %; Hematocrit 26.3 % (35.3-44.9); Hemoglobin 7.9 g/dL (11.5-15.4); Immature Granulocytes % 1.1 % (0-4); Lymphocytes # 0.8 K/mcL (0.6-4.6); Lymphocytes % 5.3 %; Monocytes # 1.7 K/mcL (0.0-1.3); Monocytes % 11.8 %; Neutrophils # 11.7 K/mcL (1.6-8.9); Platelet Count 243 K/mcL (140-400); Red Blood Count 2.63 M/mcL (3.82-4.97); Red Cell Distribution Width 17.3 % (11.5-14.5); Segmented Neutrophils % 80.1 %
[2019-02-11 17:53] LABS: Calcium 8.8 mg/dL (8.6-10.3); Potassium 3.5 mEq/L (3.5-5.1)
--- NOTE | 2019-02-11 22:35 | Nephrology Progress Note ---
Date of Encounter: 02/11/19 Time of Encounter: 12:00 - Assessment and Plan (1) Acute kidney injury superimposed on CKD Current Visit: No Status: Acute s/p HD yesterday, next planned tomorrow UOP documented at 50cc in the past 24hrs hence no renal recovery yet Continue renal diet Lytes stable (2) Acute encephalopathy Current Visit: Yes Status: Resolved Per primary (3) CKD (chronic kidney disease), stage IV Current Visit: No Status: Chronic Baseline GFR was in the 20s (4) Leukocytosis, unspecified Current Visit: Yes Status: Acute per primary team Qualifiers: Leukocytosis type: unspecified Qualified Code(s): D72.829 - Elevated white blood cell count, unspecified (5) Anemia Current Visit: Yes Status: Chronic Per primary. Hgb noted at 7.9 with low iron level, can replete Qualifiers: Anemia type: iron deficiency Iron deficiency anemia type: unspecified iron deficiency Qualified Code(s): D50.9 - Iron deficiency anemia, unspecified Subjective Interval history: Pt seen and examined complaining of pelvic pain and alittle disoriented and confused today Objective - Vital Signs Vital signs: Vital Signs Temp Pulse Resp BP Pulse Ox 02/11/19 19:50 100.1 F H 82 17 100/58 97 02/11/19 16:51 98.8 F 02/11/19 14:34 100.4 F H 82 18 107/56 98 02/11/19 11:03 98.9 F 77 16 130/69 97 02/11/19 07:38 97 02/11/19 07:10 98.6 F 73 14 129/65 97 02/11/19 03:58 99.2 F 71 17 126/74 98 02/11/19 00:06 100 F H 85 17 109/66 95 Intake and Output 02/11/19 02/11/19 02/11/19 07:59 15:59 23:59 Intake Total 460 / 1380 920 / 1380 Output Total 75 / 105 30 / 105 Balance 385 / 1275 890 / 1275 Intake: IV Fluids 100 / 300 200 / 300 Zosyn 3.375 GM In 0.9 % Sodium 100 / 200 100 / 200 Chloride (Mini-Bag +) 100 ML @ 25 mls/hr IVPB Q12HR [facility] Rx#: [id number] Vancocin 500 MG In 0.9 % Sodium 100 / 100 Chloride (Mini-Bag +) 100 ML @ 100 mls/hr IVPB ONCE ONE Rx#: [id number] Oral 360 / 1080 720 / 1080 Output: Urine 0 / 0 Catheter 75 / 105 30 / 105 Other: Meal Lunch Percent of Meal Consumed 15% # Bowel Movements 0 # Bowel Movement Diapers 1 Weight 91 kg Patient Weight 02/11/19 23:59 Weight 91 kg - General Appearance General appearance: Present: chronically ill (NAD) EENT: Present: ATNC, mucous membranes moist Neck: Present: no JVD, supple Respiratory: Present: clear Cardiology: Present: no edema, normal S1, normal S2 Gastrointestinal: Present: no tenderness, no guarding Integumentary: Present: warm and dry Neurologic: Present: confused, disoriented Musculoskeletal: Present: no deformities Psychiatric: Present: mood/affect appropriate - Lab 02/11/19 16:59 02/11/19 16:59 Most recent lab results 02/11/19 16:59 Calcium 8.8 Consult Discharge Plan - Plan Referrals: Monalisa Schneider MD [Primary Care Provider] -
[2019-02-12] MEDS: *HR* HYDROcodone/Acet 5/325 mg TABLET PO PRN ×2 (04:43→15:19)
[2019-02-12] MEDS: Piperacillin/Tazobactam 3.375 GM in 0.9 % Sodium Chloride Mini Bag 100 ML IVPB SCH ×2 (04:44→18:11)
[2019-02-12 04:48] LABS: Basophils % 0.2 %; Eosinophils # 0.3 K/mcL (0.0-0.6); Eosinophils % 2.6 %; Hematocrit 25.2 % (35.3-44.9); Hemoglobin 7.7 g/dL (11.5-15.4); Immature Granulocytes % 0.9 % (0-4); Lymphocytes % 7.5 %; Mean Corpuscular HGB Conc 30.6 g/dL (31.6-35.5); Mean Corpuscular Hemoglobin 30.3 pg (28.0-33.3); Mean Corpuscular Volume 99.2 fL (83.0-100.0); Mean Platelet Volume 9.9 fL (9.4-12.4); Monocytes # 1.6 K/mcL (0.0-1.3); Monocytes % 12.1 %; Neutrophils # 10.1 K/mcL (1.6-8.9); Platelet Count 243 K/mcL (140-400); Red Blood Count 2.54 M/mcL (3.82-4.97); Red Cell Distribution Width 17.1 % (11.5-14.5); Segmented Neutrophils % 76.7 %
[2019-02-12 05:08] LABS: Calcium 8.6 mg/dL (8.6-10.3); Magnesium 1.9 mg/dL (1.6-2.6); Phosphorous 5.6 mg/dL (2.7-4.5); Potassium 3.6 mEq/L (3.5-5.1)
[2019-02-12] MEDS: Cholecalciferol (D-3) 1,000 UNIT TABLET PO SCH (08:37)
[2019-02-12] MEDS: Fluconazole 100 MG TABLET PO SCH (08:37)
[2019-02-12] MEDS: Lactulose Oral Soln 20 GM/30 ML UDC PO SCH ×2 (08:37→20:09)
[2019-02-12] MEDS: Thiamine (B-1) 100 MG TABLET PO SCH (08:37)
[2019-02-12] MEDS: Folic Acid 1 MG TABLET PO SCH (08:37)
[2019-02-12] MEDS ORDERED: 0.9 % Sodium Chloride 250 ML IVC PRN (08:39)
[2019-02-12] MEDS ORDERED: *HR* Heparin 10,000 UNIT/10 ML VIAL IV PRN ×2 (08:39)
[2019-02-12] MEDS ORDERED: 0.9 % Sodium Chloride 1,000 ML PRIME SCH (08:45)
--- NOTE | 2019-02-12 10:06 | Neurology - Consult Note ---
<Abisai Morales J - Last Filed: 02/12/19 14:17> Date of Encounter: 02/12/19 Time of Encounter: 10:03 Assessment and Plan (1) Encephalopathy acute Current Visit: No Status: Acute Admitted with sepsis 2/2 to UTI Throughout admission has had waxing and waning mental state with episodic confusion and lethargy has h/o recurrent UTI's requiring readmissions, has a poorly defined pelvic mass which is seen on previous imaging and stable Additional hx includes ESRD, HF, hepatitis, hyperlipidemia, hypertension, liver disease, renal disease, and thyroid disease neuro consulted for altered mental state appears to have been encephalopathic on admission Also has elevated inflammatory markers; CRP 139, lactate dehydrogenase 376, and ESR >130; etiology unclear Blood cultures 02/09/19 incubating, Urine cultures incubating Neuro exam today is non focal and non lateralizing. No meningeal signs, denies, h/a, neck pain or stiffness. She is A&Ox3 and encephalopathy appears to have resolved Encephalopathy likely multifactorial with opiate pain medications d/t chronic abdominal and back pain and suspected UTI. I do not suspect a COASTAL TUG MATE infection as cause of AMS, further she does not fit the clinical picture of someone with COASTAL TUG MATE vasculitis. Recommendations are to continue treating underling metabolic issues and potential infectious sources. We do not feel that there is a need for further neuro imaging or lumbar puncture at this juncture. Further, she would benefit from further workup of the undefined pelvic mass as this may be somehow contributory. We will obtain a paraneoplastic workup as well. Recommend consultation with OB-DETENTION WORKER for futher evaluation. History of Present Illness Chief complaint: altered mental status HPI: Ms. Justin Bowers is a 78 year old female with a PMH of ESRD, HF, hepatitis, hyperlipidemia, hypertension, liver disease, renal disease, thyroid disease. She presented to [facility] with altered mental status, and sepsis secondary to UTI. On presentation to the ED she was febrile and had leukocytisis, UA revealed large leukocyte esterase and pyuria. Throughout her hospital course she has had a waxing and waning mental state and lethargy. Neurology has been consulted to evaluate for cause of altered mental state. At the time of my assessment this morning she is A&OX3 and does not appear to be encephalopathic. Her concerns this morning are in regards to her lower abdominal pain and back pain. She states that the pain is debilitating requiring narcotics to provide some relief. She notes that she is unable to sleep and has an altered sleep wake cycle d/t the intensity of the unremitting pain. She does have a known poorly defined pel miguel ángel mass on CT imaging and reports that this has yet to be worked up d/t recurrent admission. In regards to neuro sx she denies any headaches, neck pain or stiffness, visual or speech disturbances, or unilateral weakness, pain or parasthesias. CT head unremarkable, recent MRI of the brain 01/15/19 showing no acute intracranial abnormality, with mild-moderate chronic microvascular ischemic changes. Of note, she was recently admitted to [facility] for UTI and PNA; during this admission she was admission she was also diagnosed with acute hepatitis A and cirrhosis. Past Med Surg Social Fam HX - Past Medical History Medical history: CHF, hepatitis, hyperlipidemia, hypertension, liver disease, renal disease, thyroid disease Additional medical history: unable to ask patient her medical hx, shes not a/o x3 to answer qustions. Psychiatric history: no psych history - Past Surgical History Surgical History: non-contributory Additional surgical history: unable to ask patient her medical hx, shes not a/o x3 to answer qustions. - Social History Smoking Status: Never smoker Smokeless Tobacco Status: No Alcohol use: none Drug use: none Medications and Allergies Allopurinol [Zyloprim 100 MG] 100 mg PO BID 01/11/19 [History] Cholecalciferol (Vitamin D3) [Vitamin D3] 2,000 unit PO DAILY 01/11/19 [History] Gabapentin [Neurontin] 300 mg PO TID 01/11/19 [History] Levothyroxine [Levothyroxine Sodium] 137 mcg PO DAILY 01/11/19 [History] Sertraline [Zoloft] 100 mg PO DAILY 01/11/19 [History] Metoprolol Tartrate [Lopressor] 50 mg PO BID 01/13/19 [History] amLODIPine [Norvasc] 2.5 mg PO DAILY tablet 02/05/19 [Rx] Oxycodone HCl [Roxybond] 5 mg PO Q4H PRN 02/10/19 [History] Allergy/AdvReac Type Severity Reaction Status Date / Time No Known Allergies Allergy Verified 02/09/19 04:34 All Systems: The remainder of the systems were reviewed and are negative Review of Systems: REVIEW OF SYSTEMS GENERAL: Negative for fevers, chills + fatigue, malaise, weight loss and decreased activity tolerance NEUROLOGIC: Negative for any visual disturbances, facial asymmetry, dysphagia, dysarthria, hemiparesis, hemisensory deficits, vertigo, ataxia, seizures, paralysis, tingling, numbness, unilateral weakness or numbness/tingling, GASTROINTESTINAL: + abdominal pain -nausea, vomiting GENITOURINARY: Negative for any dysuria, hematuria, incontinence or vaginal bleeding ENDOCRINE: Thyroid trouble, heat/cold intolerance, excessive sweating, thirst, hunger, increased FSBG, or A1C, DM, increased urination, changes in height/weight MUSCULOSKELETAL: + back pain, and decreased activity tolerance -Joint pain, stiffness Physical Examination - Vital Signs Vital Signs: Initial Vital Signs Temp Pulse Resp BP Pulse Ox 98.8 F 71 20 90/62 88 02/09/19 02:48 02/09/19 02:48 02/09/19 02:48 02/09/19 02:48 02/09/19 02:48 - Exam Exam: Examination: General Examination: *CONSTITUTIONAL: Alert and orientedx3, no acute distress *GENERAL APPEARANCE OF PATIENT appears healthy and well groomed *EYES: pupils equal, round, reactive to light and accommodation, conjunctiva clear *CARDIOVASCULAR no peripheral edema, distal temperature normal, dorsalis pedis pulses normal. see vital signs Musculoskeletal: *GAIT AND STATION deferred *ASSESSMENT OF MUSCLE STRENGTH IN THE UPPER AND LOWER EXTREMITIES bilater al deltoid, bicep, tricep, executive sales manager strength, hip flexors ,anterior tibialis, dorsoflexion of the foot 4/5 *MUSCLE TONE IN THE UPPER AND LOWER EXTREMITIES normal. No abnormal movements, fasciculations or atrophy identified. Neurological: *ORIENTATION to person, situation, time and place *RECURRENT AND REMOTE MEMORY intact *ATTENTION AND CONCENTRATION are normal *LANGUAGE FUNCTION no significant aphasia or dysarthia was noted. *FUND OF KNOWLEDGE aware of current events, past history, vocabulary *MENTAL attention span and concentration normal. *CN II optic fundi were normal, no papilledema noted. *CN III,IV, PERRLA extraocular eye movements were full, no nystagmus and no ptosis noted. *CN V shows normal sensation and jaw opens symmetrically. *CN VII shows normal facial movement symmetrically, upper and lower bilaterally. *CN VIII shows no significant hearing loss on exam *CN IX,,X palate elevated symmetrically *CN XI normal strength in the sternocleidomastoid muscles, symmetrical shoulder shrugging. *CN XII tongue protruded in the midline, with normal strength and movement. *SENSORY EXAMINATION light touch intact *REFLEXES: deep tendon reflexes were normal and symmetrical , grade 1/4 diffusely, no pathological reflexes were noted. *CEREBELLAR TESTING normal finger to nose *PAIN LEVEL 5/10 Results - Laboratory Findings CBC and BMP: 02/12/19 04:03 02/12/19 04:03 Abnormal lab findings: Abnormal lab results WBC 13.2 K/mcL (4.3-11.1) H 02/12/19 04:03 RBC 2.54 M/mcL (3.82-4.97) L 02/12/19 04:03 Hgb 7.7 g/dL (11.5-15.4) L 02/12/19 04:03 Hct 25.2 % (35.3-44.9) L 02/12/19 04:03 MCV 101.9 fL (83.0-100.0) H 02/10/19 01:44 MCHC 30.6 g/dL (31.6-35.5) L 02/12/19 04:03 RDW 17.1 % (11.5-14.5) H 02/12/19 04:03 10.1 K/mcL (1.6-8.9) H 02/12/19 04:03 1.6 K/mcL (0.0-1.3) H 02/12/19 04:03 ESR >= 130 mm/hr (0-15) H 02/09/19 08:43 Percent Retic 3.2 % (1.6-2.8) H 02/09/19 07:46 PT 15.3 Seconds (9.4-12.1) H 02/09/19 03:15 Sodium 132 mEq/L (136-145) L 02/12/19 04:03 Chloride 97 mEq/L (98-107) L 02/12/19 04:03 BUN 33 mg/dL (8-23) H 02/12/19 04:03 5.50 mg/dL (0.60-1.20) H 02/12/19 04:03 Est GFR ( Amer) 9 (> 60) L 02/12/19 04:03 Est GFR (Non-Af Amer) 8 (> 60) L 02/12/19 04:03 5 (6-26) L 02/10/19 01:44 Calcium 8.5 mg/dL (8.6-10.3) L 02/10/19 01:44 Phosphorus 5.6 mg/dL (2.7-4.5) H 02/12/19 04:03 Iron 19 mcg/dL (50-170) L 02/09/19 07:46 % Saturation 11 % (15-50) L 02/09/19 07:46 123 mg/dL (203-362) L 02/09/19 07:46 AST 45 Units/L (13-39) H 02/09/19 03:15 ALT 4 Units/L (7-52) L 02/09/19 03:15 376 Units/L (140-271) H 02/09/19 07:46 139 mg/L (Less than 10) H 02/09/19 03:15 3.1 g/dL (3.5-5.7) L 02/09/19 03:15 4.0 g/dL (2.4-3.5) H 02/09/19 03:15 0.8 (1.1-2.2) L 02/09/19 03:15 2.89 ng/mL (0.00-0.15) H 02/11/19 14:08 Red (Yellow) A 02/10/19 19:55 Turbid (Clear) A 02/10/19 19:55 Ur Specific [place] 1.030 (1.010-1.025) H 02/10/19 19:55 >=300 mg/dL (Neg-Trace) H 02/10/19 19:55 Trace mg/dL (Negative) H 02/10/19 19:55 Large (Negative) H 02/10/19 19:55 Small (Negative) H 02/10/19 19:55 Ur Leukocyte Esterase Large (Negative) H 02/10/19 19:55 TNTC per hpf (0-3) H 02/10/19 19:55 TNTC per hpf (0-3) H 02/10/19 19:55 Ur Squamous Epith Cells Many per lpf (None-Few) H 02/10/19 19:55 Many per hpf (None Seen) H 02/10/19 19:55 - Diagnostic Findings Additional findings: CT/CT head/brain wo con IMPRESSION: 1. No acute intracranial abnormality. 2. Diffuse cerebral atrophy with chronic small vessel ischemic disease. CT/CT abd pelvis wo no iv no oral IMPRESSION: 1. No change in the poorly defined soft tissue in the pelvis. This may simply represent unopacified small bowel though a repeat examination with both intravenous and oral contrasts is once again recommended for further evaluation. 2. No acute findings in the abdomen or pelvis. Consult Discharge Plan - Plan Referrals: Monalisa Schneider MD [Primary Care Provider] - <Walter Lorenzo - Last Filed: 02/12/19 17:01> Date of Encounter: 02/12/19 Assessment and Plan (1) Encephalopathy acute Current Visit: No Status: Acute I have personally performed a [id number] assessment of the patient and have reviewed the PA/PARTS COUNTER SPECIALIST note. My impressions are as follows: I agree with the assessment as documented by the ACTIONSCRIPT DEVELOPER above. Likely there are multiple different reasons to explain the mental status changes. BUN and creatinine are elevated, she may have a UTI, she is taking pain medications perhaps in excess. One option might be to consider a pain pump, so the providers have better control over how her pain is managed. And I agree with ordering test to rule out paraneoplastic influences on mental status although she does not present a clinical picture for limbic encephalitis. She does have an unknown mass in the adnexa. We will reevaluate tomorrow. History of Present Illness HPI: Chart was reviewed, patient was seen and examined independently. I agree with the history of present illness as stated above by the CMP. This was discussed with the CMP. Patient does seem to be fixated on back and abdominal pain. CT scan of the head only reveals age-related changes mainly atrophy. She was recently admitted under similar circumstances at the end of January and improved during her hospital stay which suggests to me that overuse of analgesics may be the culprit. All Systems: The remainder of the systems were reviewed and are negative Review of Systems: The balance of the systems review is negative. Physical Examination - Vital Signs Vital Signs: Initial Vital Signs Temp Pulse Resp BP Pulse Ox 98.8 F 71 20 90/62 88 02/09/19 02:48 02/09/19 02:48 02/09/19 02:48 02/09/19 02:48 02/09/19 02:48 - Exam Exam: I have personally performed a [id number] assessment of the patient and have reviewed the PA/PARTS COUNTER SPECIALIST note. My impressions are as follows: I agree with the neurologic examination as documented above. Results - Laboratory Findings CBC and BMP: 02/12/19 04:03 02/12/19 04:03 Abnormal lab findings: Abnormal lab results WBC 13.2 K/mcL (4.3-11.1) H 02/12/19 04:03 RBC 2.54 M/mcL (3.82-4.97) L 02/12/19 04:03 Hgb 7.7 g/dL (11.5-15.4) L 02/12/19 04:03 Hct 25.2 % (35.3-44.9) L 02/12/19 04:03 MCV 101.9 fL (83.0-100.0) H 02/10/19 01:44 MCHC 30.6 g/dL (31.6-35.5) L 02/12/19 04:03 RDW 17.1 % (11.5-14.5) H 02/12/19 04:03 10.1 K/mcL (1.6-8.9) H 02/12/19 04:03 1.6 K/mcL (0.0-1.3) H 02/12/19 04:03 ESR >= 130 mm/hr (0-15) H 02/09/19 08:43 Percent Retic 3.2 % (1.6-2.8) H 02/09/19 07:46 PT 15.3 Seconds (9.4-12.1) H 02/09/19 03:15 Sodium 132 mEq/L (136-145) L 02/12/19 04:03 Chloride 97 mEq/L (98-107) L 02/12/19 04:03 BUN 33 mg/dL (8-23) H 02/12/19 04:03 5.50 mg/dL (0.60-1.20) H 02/12/19 04:03 Est GFR ( Amer) 9 (> 60) L 02/12/19 04:03 Est GFR (Non-Af Amer) 8 (> 60) L 02/12/19 04:03 5 (6-26) L 02/10/19 01:44 Calcium 8.5 mg/dL (8.6-10.3) L 02/10/19 01:44 Phosphorus 5.6 mg/dL (2.7-4.5) H 02/12/19 04:03 Iron 19 mcg/dL (50-170) L 02/09/19 07:46 % Saturation 11 % (15-50) L 02/09/19 07:46 123 mg/dL (203-362) L 02/09/19 07:46 AST 45 Units/L (13-39) H 02/09/19 03:15 ALT 4 Units/L (7-52) L 02/09/19 03:15 376 Units/L (140-271) H 02/09/19 07:46 139 mg/L (Less than 10) H 02/09/19 03:15 3.1 g/dL (3.5-5.7) L 02/09/19 03:15 4.0 g/dL (2.4-3.5) H 02/09/19 03:15 0.8 (1.1-2.2) L 02/09/19 03:15 2.89 ng/mL (0.00-0.15) H 02/11/19 14:08 Red (Yellow) A 02/10/19 19:55 Turbid (Clear) A 02/10/19 19:55 Ur Specific [place] 1.030 (1.010-1.025) H 02/10/19 19:55 >=300 mg/dL (Neg-Trace) H 02/10/19 19:55 Trace mg/dL (Negative) H 02/10/19 19:55 Large (Negative) H 02/10/19 19:55 Small (Negative) H 02/10/19 19:55 Ur Leukocyte Esterase Large (Negative) H 02/10/19 19:55 TNTC per hpf (0-3) H 02/10/19 19:55 TNTC per hpf (0-3) H 02/10/19 19:55 Ur Squamous Epith Cells Many per lpf (None-Few) H 02/10/19 19:55 Many per hpf (None Seen) H 02/10/19 19:55 Crossmatch See Detail 02/09/19 05:25
--- NOTE | 2019-02-12 10:44 | Infectious Disease Progress No ---
ID Progress Note Date of Encounter: 02/12/19 Time of Encounter: 09:25 - Subjective Subjective: Patient seen and examined. No acute events noted overnight. Patient complaining of middle lower back pain that is normal for her. Denies fevers, chills, or rigors. Denies chest pain, shortness of breath, or cough. Denies nausea, vomiting, diarrhea, or constipation. Denies abdominal pain or urinary complaints. Denies oral thrush or any skin lesions. States her appetite is okay. - Objective CBC & Chem 7: 02/12/19 04:03 02/12/19 04:03 - Exam Vitals: Temp Pulse Resp BP Pulse Ox 98.9 F 75 17 125/73 98 02/12/19 07:06 02/12/19 07:06 02/12/19 07:06 02/12/19 07:06 02/12/19 08:41 Exam: Head: Atraumatic, normal inspection, normocephalic. Eye: EOMI, PERRLA, no scleral icterus noted. ENT: Mucous membranes moist. No odontogenic infection noted. Neck: Normal inspection, no meningismus. Respiratory: Clear to auscultation. No rales, respiratory distress, rhonchi, or wheezes noted. Cardiovascular: Regular rate and rhythm, S1 and S2 audible. No murmurs, rubs, or gallops. GI: Soft, nondistended, normal bowel sounds. De Oliveira catheter noted to be draining small amount of clear yellow urine. Extremities:No joint swelling, pedal edema, or tenderness noted. Back: Normal inspection. No vertebral tenderness noted. Neurological: Alert, oriented 3, no focal deficits. Psychiatric: normal affect, normal mood. Skin: Dry, intact, warm. Normal color. No rashes. - Assessment and Plan (1) Sepsis Current Visit: Yes Status: Suspected The patient has to sepsis criteria. Unclear. Infectious vs other. Improved. White blood cell count trending down. Continues to have intermittent fevers. Blood cultures drawn 02/09/19 are no growth to date 2. Qualifiers: Sepsis type: sepsis due to unspecified organism Qualified Code(s): A41.9 - Sepsis, unspecified organism SNOMED Code(s): 71945636 (2) UTI (urinary tract infection) Current Visit: No Status: Acute Causative organism: Unclear. Urinalysis appears purulent, but also contaminated and the patient is ESRD so she doesn't make much urine anyways so her urine will always appear pyuric. Urine culture is pending. Previous urine cultures positive for yeast, Enterococcus faecium, and Escherichia coli. Currently on fluconazole and Zosyn. Qualifiers: Urinary tract infection type: site unspecified Hematuria presence: without hematuria Qualified Code(s): N39.0 - Urinary tract infection, site not specified SNOMED Code(s): 86642303 (3) Encephalopathy acute Current Visit: No Status: Acute Etiology: Unclear. Sepsis versus other. Ammonia level normal. No meningeal signs. CT head negative. Appears improved. Neurology consulted. SNOMED Code(s): 20383719, 590800605 (4) Pelvic mass Current Visit: No Status: Acute Etiology unclear. Concern for malignancy as this could be the cause of the patient's back/abdominal pain, elevated ESR and CRP, and elevated LDH. Consider hem/onc to evaluate. SNOMED Code(s): 23599817 (5) Cirrhosis Current Visit: No Status: Acute Qualifiers: Hepatic cirrhosis type: unspecified hepatic cirrhosis Ascites presence: without ascites Qualified Code(s): K74.60 - Unspecified cirrhosis of liver SNOMED Code(s): 19338700 (6) ESRD (end stage renal disease) on dialysis Current Visit: Yes Status: Acute Nephrology consulted and following. SNOMED Code(s): 708454236 (7) Hypothyroidism Current Visit: Yes Status: Acute Qualifiers: Hypothyroidism type: acquired Qualified Code(s): E03.9 - Hypothyroidism, unspecified SNOMED Code(s): 19941618 (8) Abdominal pain Current Visit: No Status: Acute Etiology not clear CT abdomen and pelvis on admission 02/09/2019 done without contrast and showed a pelvic mass. I am concerned for intra-abdominal process specially with her elevated LDH. Not sure if ischemic colitis on the differential. Qualifiers: Abdominal location: generalized Qualified Code(s): R10.84 - Generalized abdominal pain SNOMED Code(s): 54995959 (9) Congestive heart failure Current Visit: No Status: Acute Qualifiers: Heart failure type: systolic Heart failure chronicity: acute Qualified Code(s): I50.21 - Acute systolic (congestive) heart failure SNOMED Code(s): 94351088 (10) Pulmonary edema Current Visit: Yes Status: Acute Qualifiers: Chronicity: chronic Qualified Code(s): J81.1 - Chronic pulmonary edema SNOMED Code(s): 10228655 - Recommendations Recommendations: Await blood cultures to evaluate. Await urine culture. Consider repeat CT of the abdomen and pelvis with IV and oral contrast. Await recommendations from neurology. ESRD management per nephrology. Continue zosyn 3.375 grams IV Q12H. Continue fluconazole 200mg PO daily. Duration of treatment depends on the clinical picture. Monitor renal function and dose-adjust antibiotics. Consult Discharge Plan - Plan Referrals: Monalisa Schneider MD [Primary Care Provider] - - Attending Attestation I have personally performed a face to face evaluation on this patient. I have reviewed and agree with the care plan. History and Exam by me shows: Assessment and plan: Sepsis Encephalopathy Pelvic mass Liver cirrhosis End-stage renal disease on hemodialysis Recommendations Await blood cultures to evaluate. Await urine culture. Consider repeat CT of the abdomen and pelvis with IV and oral contrast. Await recommendations from neurology. ESRD management per nephrology. Continue zosyn 3.375 grams IV Q12H. Continue fluconazole 200mg PO daily. Duration of treatment depends on the clinical picture. Monitor renal function and dose-adjust antibiotics.
--- NOTE | 2019-02-12 13:58 | Internal Med Progress Note ---
Hospitalist Progress Note - Encounter Date of Encounter: 02/12/19 Time of Encounter: 13:54 - Subjective Interval History: I have seen and evaluate the patient at bedside. patient reports still having 7/10 constant supra-pubic abdominal pain. denies diarrhea, nausea, or vomiting. denies shortness of breath. - Exam Vitals: Temp Pulse Resp BP Pulse Ox 98.3 F 75 17 146/82 99 02/12/19 11:16 02/12/19 11:16 02/12/19 11:16 02/12/19 11:16 02/12/19 11:16 Exam: Vitals: Reviewed. General: Alert and oriented x2. Still in mild to moderate distress due to abdominal pain Cardiovascular: RRR, normal S1 & S2, no rubs, murmurs or gallops. Lungs: CTA b/l, no wheezes or crackles. Abdomen: Obese, soft, tenderness to superficial palpation in the supra-pubic area, no rigidity or guarding. Extremities: No edema Neurological: No focal neurological abnormalities Rest of the physical exam is non contributory - Assessment and Plan (1) Sepsis Current Visit: Yes Status: Suspected Assessment and Plan: wbc count trending down. patient hemodynamically stable. patient being covered empirically with piperacillin/tazobactam 3.375mg/IV Q8HRs on fluconazole 200mg/PO daily urine culture: yeast species blood culture: no growth pending final report (2) Leukocytosis, unspecified Current Visit: Yes Status: Chronic Assessment and Plan: possible persistent leukocytosis due to chronic pelvic pain. (3) UTI (urinary tract infection) Current Visit: No Status: Acute Assessment and Plan: Urinary culture: yeast species. patient on fuconazole 200mg/PO daily plus Piperacillin/tazobactam 3.375mg/IV will defer antibiotics management to ID (4) Cirrhosis Current Visit: No Status: Acute Assessment and Plan: Ammonia level within normal limits. Continue lactulose, titrate for 2-3 bowel movements a day. (5) Diastolic CHF Current Visit: No Status: Chronic Assessment and Plan: Patient is euvolemic. On hemodialysis. Fluid restriction to 1.5 L a day, plus a strict intake and output and daily weight. (6) Anemia Current Visit: Yes Status: Chronic Assessment and Plan: H&H 7.7&25.2. will transfuse 1 unit of blood with HD. (7) Pelvic mass in female Current Visit: No Status: Chronic Assessment and Plan: patient reporting 8/10 supra-pubic pain. on [place] 5-325mg/PO 1tab PO Q6HR PRN pain sub optimally controlled. percocet 5/325mg PO 1tab Q8HR PRN added (8) Acute encephalopathy Current Visit: Yes Status: Resolved (9) Hypothyroidism Current Visit: Yes Status: Acute Assessment and Plan: On levothyroxine 137 mcg/PO daily (10) Acute kidney injury superimposed on CKD Current Visit: No Status: Acute Assessment and Plan: nephro protective strategies. renal replacement therapy per nephrology team. DVT Prophylaxis: intermittent pneumatic compression for DVT prophylaxis. - Summary of Assessment and Plan Summary of Assessment and Plan: patient to remain in the hospital due to resolving encephalopathy and sepsis. - Time Spent with Patient Total time spent is greater than 50% in coordination of care (as documented) at patient's floor/unit and/or counseling patient: Greater than 35 minutes (40) Plan of Care Discussed with: patient (and the nurse.) Internal Medicine: Result - Labs CBC & Chem 7: 02/12/19 04:03 02/12/19 04:03 Labs: Short CBC 02/11/19 02/12/19 Range/Units 16:59 04:03 WBC 14.6 H 13.2 H (4.3-11.1) K/mcL Hgb 7.9 L 7.7 L (11.5-15.4) g/dL Hct 26.3 L 25.2 L (35.3-44.9) % Plt Count 243 243 (140-400) K/mcL Neutrophils # 11.7 H 10.1 H (1.6-8.9) K/mcL BMP 02/11/19 02/12/19 16:59 04:03 Sodium 133 L 132 L Potassium 3.5 3.6 Chloride 97 L 97 L Carbon Dioxide 27 24 BUN 27 H 33 H Creatinine 4.72 H 5.50 H Glucose 90 78 Calcium 8.8 8.6 - ABG Interpretation ABG results: PT/INR, D-dimer PT 15.3 Seconds (9.4-12.1) H 02/09/19 03:15 Consult Discharge Plan - Plan Referrals: Monalisa Schneider MD [Primary Care Provider] - (1) Sepsis Qualifiers: Sepsis type: sepsis due to unspecified organism Qualified Code(s): A41.9 - Sepsis, unspecified organism (2) Leukocytosis, unspecified Qualifiers: Leukocytosis type: unspecified Qualified Code(s): D72.829 - Elevated white blood cell count, unspecified (3) UTI (urinary tract infection) Qualifiers: Urinary tract infection type: site unspecified Hematuria presence: without hematuria Qualified Code(s): N39.0 - Urinary tract infection, site not specified (4) Cirrhosis Qualifiers: Hepatic cirrhosis type: unspecified hepatic cirrhosis Ascites presence: without ascites Qualified Code(s): K74.60 - Unspecified cirrhosis of liver (5) Diastolic CHF Qualifiers: Heart failure chronicity: chronic Qualified Code(s): I50.32 - Chronic diastolic (congestive) heart failure (6) Anemia Qualifiers: Anemia type: iron deficiency Iron deficiency anemia type: unspecified iron deficiency Qualified Code(s): D50.9 - Iron deficiency anemia, unspecified (9) Hypothyroidism Qualifiers: Hypothyroidism type: acquired Qualified Code(s): E03.9 - Hypothyroidism, unspecified
[2019-02-12] MEDS ORDERED: *HR* OxyCODONE/APAP 5/325 TABLET PO PRN (14:07)
[2019-02-12] MEDS ORDERED: traMADol 50 MG TABLET PO PRN (14:16)
[2019-02-12] MEDS ORDERED: 0.9 % Sodium Chloride 250 ML ONE (17:49)
[2019-02-12] MEDS: *HR* OxyCODONE/APAP 5/325 TABLET PO PRN (18:11)
--- NOTE | 2019-02-12 22:37 | Nephrology Progress Note ---
Date of Encounter: 02/12/19 Time of Encounter: 12:00 - Assessment and Plan (1) Acute kidney injury superimposed on CKD Current Visit: No Status: Acute (2) Acute encephalopathy Current Visit: Yes Status: Resolved (3) CKD (chronic kidney disease), stage IV Current Visit: No Status: Chronic (4) Leukocytosis, unspecified Current Visit: Yes Status: Chronic Qualifiers: Leukocytosis type: unspecified Qualified Code(s): D72.829 - Elevated white blood cell count, unspecified (5) Anemia Current Visit: Yes Status: Chronic Qualifiers: Anemia type: iron deficiency Iron deficiency anemia type: unspecified iron deficiency Qualified Code(s): D50.9 - Iron deficiency anemia, unspecified Subjective Interval history: Pt seen and examined complaining of pelvic pain and alittle disoriented and confused today Objective - Vital Signs Vital signs: Vital Signs Temp Pulse Resp BP Pulse Ox 02/12/19 20:00 99.6 F 98 18 93/57 98 02/12/19 19:48 98 02/12/19 19:45 100.0 F H 99 16 99/64 97 02/12/19 18:57 99.8 F H 104 18 116/56 97 02/12/19 16:55 97.2 F L 17 142/88 02/12/19 16:45 122/69 02/12/19 16:30 146/94 02/12/19 16:15 130/45 02/12/19 16:00 117/64 02/12/19 15:45 106/47 02/12/19 15:30 108/53 02/12/19 15:15 112/59 02/12/19 15:00 120/74 02/12/19 14:45 109/41 02/12/19 14:30 108/55 02/12/19 14:15 106/56 02/12/19 14:00 121/65 02/12/19 13:45 99 F 19 138/67 02/12/19 11:16 98.3 F 75 17 146/82 99 02/12/19 08:41 98 02/12/19 07:06 98.9 F 75 17 125/73 98 02/12/19 03:47 98.8 F 75 17 120/69 98 02/11/19 23:32 99.0 F 78 17 105/62 98 Intake and Output 02/12/19 02/12/19 02/12/19 07:59 15:59 23:59 Intake Total 0 / 730 730 / 730 0 / 730 Output Total 0 / 3600 3600 / 3600 Balance 0 / -2870 730 / -2870 -3600 / -2870 Intake: IV Fluids 100 / 100 Zosyn 3.375 GM In 0.9 % Sodium 100 / 100 Chloride (Mini-Bag +) 100 ML @ 25 mls/hr IVPB Q12HR SANGE[facility]A Rx#: [id number] Oral 0 / 30 30 / 30 Blood Product 0 / 0 Rbcs Leuko Poor As-1 Unit 0 / 0 [id number] Intake, Rinseback and Flushes 600 / 600 Output: Urine 0 / 0 0 / 0 Total Dialysis (HD) Output 3600 / 3600 Other: Meal Breakfast Percent of Meal Consumed 10% Stool Size Moderate Moderate Stool Consistency loose loose liquid Stool Color Brown Brown # Voids 1 # Bowel Movement Diapers 1 1 Hemodialysis Net Fluid Removed 2408 3000 (mL) - Lab 02/12/19 04:03 02/12/19 04:03 Consult Discharge Plan - Plan Referrals: Monalisa Schneider MD [Primary Care Provider] -
[2019-02-13] MEDS: *HR* HYDROcodone/Acet 5/325 mg TABLET PO PRN ×3 (03:35→20:00)
[2019-02-13 05:40] LABS: Hematocrit 28.1 % (35.3-44.9); Mean Corpuscular Hemoglobin 30.9 pg (28.0-33.3); Mean Corpuscular Volume 96.6 fL (83.0-100.0); Mean Platelet Volume 9.7 fL (9.4-12.4); Platelet Count 219 K/mcL (140-400); Red Blood Count 2.91 M/mcL (3.82-4.97); Red Cell Distribution Width 16.7 % (11.5-14.5)
[2019-02-13] MEDS: Piperacillin/Tazobactam 3.375 GM in 0.9 % Sodium Chloride Mini Bag 100 ML IVPB SCH ×2 (05:50→17:13)
[2019-02-13 05:58] LABS: Calcium 8.1 mg/dL (8.6-10.3); Potassium 3.2 mEq/L (3.5-5.1)
[2019-02-13] MEDS: *HR* OxyCODONE/APAP 5/325 TABLET PO PRN ×2 (07:59→17:07)
[2019-02-13] MEDS: Folic Acid 1 MG TABLET PO SCH (07:59)
[2019-02-13] MEDS: Fluconazole 100 MG TABLET PO SCH (07:59)
[2019-02-13] MEDS: Lactulose Oral Soln 20 GM/30 ML UDC PO SCH ×2 (07:59→20:00)
[2019-02-13] MEDS: Thiamine (B-1) 100 MG TABLET PO SCH (07:59)
[2019-02-13] MEDS: Cholecalciferol (D-3) 1,000 UNIT TABLET PO SCH (08:00)
--- NOTE | 2019-02-13 10:29 | Nephrology Progress Note ---
Date of Encounter: 02/13/19 Time of Encounter: 10:26 - Assessment and Plan (1) Acute kidney injury superimposed on CKD Current Visit: No Status: Acute Plan for HD tomorrow Continue renal diet Consult to neonatal social worker-?? patient of another [employer] or does she need a chair time set up in one of our dialysis units (2) Anemia Current Visit: Yes Status: Chronic Hgb better at 9.0 s/p transfusion Goal hgb 10-11 Qualifiers: Anemia type: iron deficiency Iron deficiency anemia type: unspecified iron deficiency Qualified Code(s): D50.9 - Iron deficiency anemia, unspecified (3) Leukocytosis, unspecified Current Visit: Yes Status: Chronic per primary team Qualifiers: Leukocytosis type: unspecified Qualified Code(s): D72.829 - Elevated white blood cell count, unspecified (4) CKD (chronic kidney disease), stage IV Current Visit: No Status: Chronic Baseline GFR was in the 20s (5) Acute encephalopathy Current Visit: Yes Status: Resolved Per primary Subjective Principal diagnosis: CHANI, acute encephalopathy Interval history: Patient seen and examined. Confused and quiet this morning. Objective - Vital Signs Vital signs: Vital Signs Temp Pulse Resp BP Pulse Ox 02/13/19 08:04 97 02/13/19 06:39 97.9 F 80 18 123/72 97 02/13/19 03:50 99.7 F H 82 17 126/74 94 02/12/19 23:10 98.9 F 92 16 99/62 99 02/12/19 20:00 99.6 F 98 18 93/57 98 02/12/19 19:48 98 02/12/19 19:45 100.0 F H 99 16 99/64 97 02/12/19 18:57 99.8 F H 104 18 116/56 97 02/12/19 16:55 97.2 F L 17 142/88 02/12/19 16:45 122/69 02/12/19 16:30 146/94 02/12/19 16:15 130/45 02/12/19 16:00 117/64 02/12/19 15:45 106/47 02/12/19 15:30 108/53 02/12/19 15:15 112/59 02/12/19 15:00 120/74 02/12/19 14:45 109/41 02/12/19 14:30 108/55 02/12/19 14:15 106/56 02/12/19 14:00 121/65 02/12/19 13:45 99 F 19 138/67 02/12/19 11:16 98.3 F 75 17 146/82 99 Intake and Output 02/12/19 02/13/19 02/13/19 23:59 07:59 15:59 Intake Total 450 / 1180 240 / 370 130 / 370 Output Total 3600 / 3600 Balance -3150 / -2420 240 / 370 130 / 370 Intake: IV Fluids 100 / 200 100 / 100 Zosyn 3.375 GM In 0.9 % Sodium 100 / 200 100 / 100 Chloride (Mini-Bag +) 100 ML @ 25 mls/hr IVPB Q12HR [facility] Rx#: [id number] Oral 240 / 270 30 / 270 Blood Product 350 / 350 Rbcs Leuko Poor As-1 Unit 350 / 350 [id number] Output: Urine 0 / 0 Total Dialysis (HD) Output 3600 / 3600 Other: Stool Size Moderate Small Stool Consistency loose soft liquid formed Stool Characteristics Normal for Patient Stool Color Brown Brown # Urine Diapers 1 # Bowel Movement Diapers 1 1 Hemodialysis Net Fluid Removed 3000 (mL) - General Appearance General appearance: Present: fatigue, frail EENT: Present: ATNC, hearing intact, vision intact Neck: Present: supple Respiratory: Present: clear Cardiology: Present: no edema, normal S1, normal S2 Dialysis Vascular Access: Venous Catheter Gastrointestinal: Present: no tenderness, no guarding Integumentary: Present: warm and dry Neurologic: Present: confused Psychiatric: Present: mood/affect appropriate - Lab 02/13/19 05:14 02/13/19 05:14 Most recent lab results 02/13/19 05:14 Calcium 8.1 L Consult Discharge Plan - Plan Referrals: Monalisa Schneider MD [Primary Care Provider] - ([facility])
--- NOTE | 2019-02-13 10:38 | Infectious Disease Progress No ---
ID Progress Note Date of Encounter: 02/13/19 Time of Encounter: 09:35 - Subjective Subjective: Patient seen and examined. No acute events noted overnight. Patient complaining of middle lower back pain that is normal for her. Denies fevers, chills, or rigors. Denies chest pain, shortness of breath, or cough. Denies vomiting, diarrhea, or constipation. Reports some nausea this morning and states she didn't eat any breakfast. Denies abdominal pain or urinary complaints. Stat es she makes very little urine secondary to her ESRD. Denies oral thrush or any skin lesions. - Objective CBC & Chem 7: 02/13/19 05:14 02/13/19 05:14 - Exam Vitals: Temp Pulse Resp BP Pulse Ox 98.8 F 77 18 110/67 95 02/13/19 10:24 02/13/19 10:24 02/13/19 10:24 02/13/19 10:24 02/13/19 10:24 Exam: Head: Atraumatic, normal inspection, normocephalic. Eye: EOMI, PERRLA, no scleral icterus noted. ENT: Mucous membranes moist. No odontogenic infection noted. Neck: Normal inspection, no meningismus. Respiratory: Clear to auscultation. No rales, respiratory distress, rhonchi, or wheezes noted. Cardiovascular: Regular rate and rhythm, S1 and S2 audible. No murmurs, rubs, or gallops. GI: Soft, round, normal bowel sounds. Mild tenderness noted with palpation of the LLQ. Extremities: No joint swelling, pedal edema, or tenderness noted. Back: Normal inspection. No vertebral tenderness noted. Neurological: Alert, oriented 3, no focal deficits. Psychiatric: normal affect, normal mood. Skin: Dry, intact, warm. Normal color. No rashes. Additional physical exam findings: Perma-cath noted to the right upper chest with transparent dressing C/d/I. No erythema, warmth, tenderness, or drainage noted. - Assessment and Plan (1) Sepsis Current Visit: Yes Status: Suspected The patient has to sepsis criteria. Unclear. Infectious vs other. Improved. White blood cell count back up a little this morning, but the patient did get a unit of PRBCs yesterday. Continues to have intermittent low-grade fevers. Blood cultures drawn 02/09/19 are no growth to date 2. Qualifiers: Sepsis type: sepsis due to unspecified organism Qualified Code(s): A41.9 - Sepsis, unspecified organism SNOMED Code(s): 12581080 (2) UTI (urinary tract infection) Current Visit: No Status: Acute Causative organism: Unclear. Urinalysis appears purulent, but also contaminated and the patient is ESRD so she doesn't make much urine anyways so her urine will always appear pyuric. Urine culture is positive for Yeast species. I have asked micro to speciate and run sensitivities. Previous urine cultures positive for yeast, Enterococcus faecium, and Escherichia coli. Currently on fluconazole and Zosyn. Qualifiers: Urinary tract infection type: site unspecified Hematuria presence: without hematuria Qualified Code(s): N39.0 - Urinary tract infection, site not spec ified SNOMED Code(s): 78139533 (3) Encephalopathy acute Current Visit: No Status: Acute Etiology: Unclear. Sepsis versus other. Ammonia level normal. No meningeal signs. CT head negative. Appears improved. Neurology consulted. SNOMED Code(s): 11818508, 029565917 (4) Pelvic mass Current Visit: No Status: Acute Etiology unclear. Concern for malignancy as this could be the cause of the patient's back /abdominal pain, elevated ESR and CRP, and elevated LDH. Consider hem/onc to evaluate. SNOMED Code(s): 35177423 (5) Cirrhosis Current Visit: No Status: Acute Qualifiers: Hepatic cirrhosis type: unspecified hepatic cirrhosis Ascites presence: without ascites Qualified Code(s): K74.60 - Unspecified cirrhosis of liver SNOMED Code(s): 12122414 (6) ESRD (end stage renal disease) on dialysis Current Visit: Yes Status: Acute Nephrology consulted and following. SNOMED Code(s): 171732185 (7) Hypothyroidism Current Visit: Yes Status: Acute Qualifiers: Hypothyroidism type: acquired Qualified Code(s): E03.9 - Hypothyroidism, unspecified SNOMED Code(s): 08131837 (8) Abdominal pain Current Visit: No Status: Acute Etiology not clear CT abdomen and pelvis on admission 02/09/2019 done without contrast and showed a pelvic mass. I am concerned for intra-abdominal process specially with her elevated LDH. Not sure if ischemic colitis on the differential. Improved. Qualifiers: Abdominal location: generalized Qualified Code(s): R10.84 - Generalized abdominal pain SNOMED Code(s): 40733470 (9) Congestive heart failure Current Visit: No Status: Acute Qualifiers: Heart failure type: systolic Heart failure chronicity: acute Qualified Code(s): I50.21 - Acute systolic (congestive) heart failure SNOMED Code(s): 43835385 (10) Pulmonary edema Current Visit: Yes Status: Acute Qualifiers: Chronicity: chronic Qualified Code(s): J81.1 - Chronic pulmonary edema SNOMED Code(s): 75182799 - Recommendations Recommendations: Await blood cultures to finalize. Await urine cultur to finalize. Consider repeat CT of the abdomen and pelvis with IV and oral contrast. Consider hem/onc to evaluate. ESRD management per nephrology. Continue zosyn 3.375 grams IV Q12H. Continue fluconazole 200mg PO daily. Duration of treatment depends on the clinical picture. Monitor renal function and dose-adjust antibiotics. Consult Discharge Plan - Plan Referrals: Monalisa Schneider MD [Primary Care Provider] - ([facility]) - Attending Attestation I have personally performed a face to face evaluation on this patient. I have reviewed and agree with the care plan. History and Exam by me shows: Assessment and plan: Sepsis Encephalopathy Pelvic mass Liver cirrhosis End-stage renal disease on hemodialysis Recommendations Await blood cultures to evaluate. Await urine culture. Consider repeat CT of the abdomen and pelvis with IV and oral contrast. Await recommendations from neurology. ESRD management per nephrology. Continue zosyn 3.375 grams IV Q12H. Continue fluconazole 200mg PO daily. Duration of treatment depends on the clinical picture. Monitor renal function and dose-adjust antibiotics.
--- NOTE | 2019-02-13 11:13 | Internal Med Progress Note ---
Hospitalist Progress Note - Encounter Date of Encounter: 02/13/19 Time of Encounter: 11:05 - Subjective Interval History: Patient complains of pain from lower back and the pelvic, 10 out of 10, constant, worsening at night. She is alert, knows at the [facility]. But she is confused about the time. Patient is stated she lives at home with her daughter and her grandkids. She is missed apppontment with Dr Sanchez in [place] she wants something to be done on her pelvic mass and the pain. She denies fever or chills no nausea vomiting. - Exam Vitals: Temp Pulse Resp BP Pulse Ox 98.8 F 77 18 110/67 95 02/13/19 10:24 02/13/19 10:24 02/13/19 10:24 02/13/19 10:24 02/13/19 10:24 Exam: Vitals: Reviewed. General: Alert and oriented x2. Still in mild to moderate distress due to abdominal pain Cardiovascular: RRR, normal S1 & S2, no rubs, murmurs or gallops. Lungs: CTA b/l, no wheezes or crackles. Abdomen: Obese, soft, tenderness to superficial palpation in the supra-pubic area, no rigidity or guarding. Extremities: No edema Neurological: No focal neurological abnormalities Rest of the physical exam is non contributory DVT Prophylaxis: intermittent pneumatic compression for DVT prophylaxis. - Summary of Assessment and Plan Summary of Assessment and Plan: (1) Sepsis, unknown etiology Current Visit: Yes Status: Suspected Assessment and Plan: wbc count trending down. patient hemodynamically stable. patient being covered empirically with piperacillin/tazobactam 3.375mg/IV Q8HRs on fluconazole 200mg/PO daily urine culture: yeast species blood culture: no growth pending final report (2) Leukocytosis, unspecified Current Visit: Yes Status: Chronic Assessment and Plan: possible persistent leukocytosis due to chronic pelvic pain. (3) UTI (urinary tract infection) Current Visit: No Status: Acute Assessment and Plan: Urinary culture: yeast species. patient on fuconazole 200mg/PO daily plus Piperacillin/tazobactam 3.375mg/IV (4) Cirrhosis Current Visit: No Status: Acute Assessment and Plan: Ammonia level within normal limits. Continue lactulose, titrate for 2-3 bowel movements a day. (5) Diastolic CHF Current Visit: No Status: Chronic Assessment and Plan: Patient is euvolemic. On hemodialysis. Fluid restriction to 1.5 L a day, plus a strict intake and output and daily weight. (6) Anemia Current Visit: Yes Status: Chronic Assessment and Plan: H&H 7.7&25.2. had one unit of blood (7) Pelvic mass in female patient missed Appointment on 01/22, patient is new to Dr Ledesma, they rescheduled appt on 02/26, will consult Oncology Current Visit: No Status: Chronic Assessment and Plan: patient reporting 8/10 supra-pubic pain. on [place] 5-325mg/PO 1tab PO Q6HR PRN pain sub optimally controlled. percocet 5/325mg PO 1tab Q8HR PRN added (8) Acute encephalopathy, neurology was consulted, they signed off Current Visit: Yes Status: Resolved (9) Hypothyroidism Current Visit: Yes Status: Acute Assessment and Plan: On levothyroxine 137 mcg/PO daily (10) Acute kidney injury superimposed on CKD 4, nephrology is on board, Dr Stefanie guillen is planing for HD tomorrow, will need Op chair. Current Visit: No Status: Acute Assessment and Plan: nephro protective strategies. renal replacement therapy per nephrology team. DVT Prophylaxis: intermittent pneumatic compression for DVT prophylaxis. - Time Spent with Patient Total time spent is greater than 50% in coordination of care (as documented) at patient's floor/unit and/or counseling patient: 25 - 35 minutes Plan of Care Discussed with: patient Internal Medicine: Result - Labs CBC & Chem 7: 02/13/19 05:14 02/13/19 05:14 Labs: Short CBC 02/13/19 Range/Units 05:14 WBC 14.3 H (4.3-11.1) K/mcL Hgb 9.0 L (11.5-15.4) g/dL Hct 28.1 L (35.3-44.9) % Plt Count 219 (140-400) K/mcL BMP 02/13/19 05:14 Sodium 138 Potassium 3.2 L Chloride 99 Carbon Dioxide 27 BUN 24 H Creatinine 4.41 H Glucose 90 Calcium 8.1 L - ABG Interpretation ABG results: PT/INR, D-dimer PT 15.3 Seconds (9.4-12.1) H 02/09/19 03:15 Consult Discharge Plan - Plan Referrals: Monalisa Schneider MD [Primary Care Provider] - ([facility])
--- NOTE | 2019-02-13 11:17 | Neurology Progress Note ---
<Abisai Morales J - Last Filed: 02/13/19 11:15> Date of Encounter: 02/13/19 Time of Encounter: 11:15 Assessment and Plan (1) Encephalopathy acute Current Visit: No Status: Acute Patient seen in follow-up for acute encephalopathy. Clinically, she appears to be improving in regards to her altered mental state. Encephalopathy likely multifactorial with a suspected urinary tract infection, she was also noted to have elevated BUN/creatinine and is taking multiple narcotic pain medications for abdominal and back pain. Today, she is back to baseline status. Neurological exam is nonfocal. Of note, she does have a poorly defined pelvic mass for which she has sought evaluation at [facility]. However, she is unable to provide any further detail regarding evaluation, subsequent workup or findings. Given her state and continued abdominal pain with pain radiating to the back there is concern for cancer. We have ordered a paraneoplastic workup to rule out paraneoplastic influences on mental status well. At this time neurology will sign off. She is call should any further need arise Subjective Principal diagnosis: CHANI, acute encephalopathy Interval history: Patient seen in follow-up for acute encephalopathy. Today she remains alert and oriented 3. Her main complaint at this time is lower abdominal and back pain. Objective - Constitutional Vitals: Temp Pulse Resp BP Pulse Ox 98.8 F 77 18 110/67 95 02/13/19 10:24 02/13/19 10:24 02/13/19 10:24 02/13/19 10:24 02/13/19 10:24 Exam: Examination: General Examination: *CONSTITUTIONAL: Alert and orientedx3, no acute distress *GENERAL APPEARANCE OF PATIENT overall generally ill-appearing elderly female *EYES: pupils equal, round, reactive to light and accommodation, c onjunctiva clear *CARDIOVASCULAR no peripheral edema, distal temperature normal, dorsalis pedis pulses normal. see vital signs Musculoskeletal: *GAIT AND STATION deferred *ASSESSMENT OF MUSCLE STRENGTH IN THE UPPER AND LOWER EXTREMITIES bilateral deltoid, bicep, tricep, process trainer strength, hip flexors ,anterior tibialis, dorsoflexion of the foot 4/5 *MUSCLE TONE IN THE UPPER AND LOWER EXTREMITIES normal. No abnormal movements, fasciculations or atrophy identified. Neurological: *ORIENTATION to person, situation, time and place *RECURRENT AND REMOTE MEMORY intact *ATTENTION AND CONCENTRATION are normal *LANGUAGE FUNCTION no significant aphasia or dysarthia was noted. *FUND OF KNOWLEDGE aware of current events, past history, vocabulary *MENTAL attention span and concentration normal. *CN II optic fundi were normal, no papilledema noted. *CN III,IV, PERRLA extraocular eye movements were full, no nystagmus and no ptosis noted. *CN V shows normal sensation and jaw opens symmetrically. *CN VII shows normal facial movement symmetrically, upper and lower bilaterally. *CN VIII shows no significant hearing loss on exam *CN IX,,X palate elevated symmetrically *CN XI normal strength in the sternocleidomastoid muscles, symmetrical shoulder shrugging. *CN XII tongue protruded in the midline, with normal strength and movement. *SENSORY EXAMINATION light touch intact *REFLEXES: deep tendon reflexes were normal and symmetrical , grade 1/4 diffusely, no pathological reflexes were noted. *CEREBELLAR TESTING normal finger to nose *PAIN LEVEL 7/10-primarily back pain but also reporting lower abdominal pain Results - Laboratory Findings CBC and BMP: 02/13/19 05:14 02/13/19 05:14 Abnormal lab findings: Abnormal lab results WBC 14.3 K/mcL (4.3-11.1) H 02/13/19 05:14 RBC 2.91 M/mcL (3.82-4.97) L 02/13/19 05:14 Hgb 9.0 g/dL (11.5-15.4) L 02/13/19 05:14 Hct 28.1 % (35.3-44.9) L 02/13/19 05:14 MCV 101.9 fL (83.0-100.0) H 02/10/19 01:44 MCHC 30.6 g/dL (31.6-35.5) L 02/12/19 04:03 RDW 16.7 % (11.5-14.5) H 02/13/19 05:14 10.1 K/mcL (1.6-8.9) H 02/12/19 04:03 1.6 K/mcL (0.0-1.3) H 02/12/19 04:03 ESR >= 130 mm/hr (0-15) H 02/09/19 08:43 Percent Retic 3.2 % (1.6-2.8) H 02/09/19 07:46 PT 15.3 Seconds (9.4-12.1) H 02/09/19 03:15 Sodium 132 mEq/L (136-145) L 02/12/19 04:03 Potassium 3.2 mEq/L (3.5-5.1) L 02/13/19 05:14 Chloride 97 mEq/L (98-107) L 02/12/19 04:03 BUN 24 mg/dL (8-23) H 02/13/19 05:14 4.41 mg/dL (0.60-1.20) H 02/13/19 05:14 Est GFR ( Amer) 12 (> 60) L 02/13/19 05:14 Est GFR (Non-Af Amer) 10 (> 60) L 02/13/19 05:14 5 (6-26) L 02/13/19 05:14 Calcium 8.1 mg/dL (8.6-10.3) L 02/13/19 05:14 Phosphorus 5.6 mg/dL (2.7-4.5) H 02/12/19 04:03 Iron 19 mcg/dL (50-170) L 02/09/19 07:46 % Saturation 11 % (15-50) L 02/09/19 07:46 123 mg/dL (203-362) L 02/09/19 07:46 AST 45 Units/L (13-39) H 02/09/19 03:15 ALT 4 Units/L (7-52) L 02/09/19 03:15 376 Units/L (140-271) H 02/09/19 07:46 139 mg/L (Less than 10) H 02/09/19 03:15 3.1 g/dL (3.5-5.7) L 02/09/19 03:15 4.0 g/dL (2.4-3.5) H 02/09/19 03:15 0.8 (1.1-2.2) L 02/09/19 03:15 2.89 ng/mL (0.00-0.15) H 02/11/19 14:08 Red (Yellow) A 02/10/19 19:55 Turbid (Clear) A 02/10/19 19:55 Ur Specific [place] 1.030 (1.010-1.025) H 02/10/19 19:55 >=300 mg/dL (Neg-Trace) H 02/10/19 19:55 Trace mg/dL (Negative) H 02/10/19 19:55 Large (Negative) H 02/10/19 19:55 Small (Negative) H 02/10/19 19:55 Ur Leukocyte Esterase Large (Negative) H 02/10/19 19:55 TNTC per hpf (0-3) H 02/10/19 19:55 TNTC per hpf (0-3) H 02/10/19 19:55 Ur Squamous Epith Cells Many per lpf (None-Few) H 02/10/19 19:55 Many per hpf (None Seen) H 02/10/19 19:55 Crossmatch See Detail 02/12/19 15:54 Consult Discharge Plan - Plan Referrals: Monalisa Schneider MD [Primary Care Provider] - ([facility]) <Walter Lorenzo - Last Filed: 02/13/19 18:10> Date of Encounter: 02/13/19 Assessment and Plan (1) Encephalopathy acute Current Visit: No Status: Acute I have personally performed a [id number] assessment of the patient and have reviewed the PA/PEOPLESOFT CONSULTANT note. My impressions are as follows: Case was discussed with CANINE SERVICE TEACHER. I agree with his assessment and plan as stated above. I believe that the encephalopathy is multifactorial related due to fac tors associated with her pain medication use and a urinary tract infection. I find no evidence of a primary central nervous system infectious or vascular process. I am doubtful of paraneoplastic limbic encephalitis especially since she is improving. We will reevaluate at your request. Subjective Interval history: The chart was reviewed, pt was seen and examined. Pt. remains preoccupied with her abdominal pain. She denies headache. She follows commands and answers questions appropriately. Her mental status is improved in comparison to yesterday. Objective - Constitutional Vitals: Temp Pulse Resp BP Pulse Ox 97.6 F 73 18 133/71 96 02/13/19 15:21 02/13/19 15:21 02/13/19 15:21 02/13/19 15:21 02/13/19 15:21 Exam: I have personally performed a [id number] assessment of the patient and have reviewed the PA/PEOPLESOFT CONSULTANT note. My impressions are as follows: I did not fully examine the patient today, I agree with the neurologic exami nation as documented above. Results - Laboratory Findings CBC and BMP: 02/13/19 05:14 02/13/19 05:14 Abnormal lab findings: Abnormal lab results WBC 14.3 K/mcL (4.3-11.1) H 02/13/19 05:14 RBC 2.91 M/mcL (3.82-4.97) L 02/13/19 05:14 Hgb 9.0 g/dL (11.5-15.4) L 02/13/19 05:14 Hct 28.1 % (35.3-44.9) L 02/13/19 05:14 MCV 101.9 fL (83.0-100.0) H 02/10/19 01:44 MCHC 30.6 g/dL (31.6-35.5) L 02/12/19 04:03 RDW 16.7 % (11.5-14.5) H 02/13/19 05:14 10.1 K/mcL (1.6-8.9) H 02/12/19 04:03 1.6 K/mcL (0.0-1.3) H 02/12/19 04:03 ESR >= 130 mm/hr (0-15) H 02/09/19 08:43 Percent Retic 3.2 % (1.6-2.8) H 02/09/19 07:46 PT 15.3 Seconds (9.4-12.1) H 02/09/19 03:15 Sodium 132 mEq/L (136-145) L 02/12/19 04:03 Potassium 3.2 mEq/L (3.5-5.1) L 02/13/19 05:14 Chloride 97 mEq/L (98-107) L 02/12/19 04:03 BUN 24 mg/dL (8-23) H 02/13/19 05:14 4.41 mg/dL (0.60-1.20) H 02/13/19 05:14 Est GFR ( Amer) 12 (> 60) L 02/13/19 05:14 Est GFR (Non-Af Amer) 10 (> 60) L 02/13/19 05:14 5 (6-26) L 02/13/19 05:14 Calcium 8.1 mg/dL (8.6-10.3) L 02/13/19 05:14 Phosphorus 5.6 mg/dL (2.7-4.5) H 02/12/19 04:03 Iron 19 mcg/dL (50-170) L 02/09/19 07:46 % Saturation 11 % (15-50) L 02/09/19 07:46 123 mg/dL (203-362) L 02/09/19 07:46 AST 45 Units/L (13-39) H 02/09/19 03:15 ALT 4 Units/L (7-52) L 02/09/19 03:15 376 Units/L (140-271) H 02/09/19 07:46 139 mg/L (Less than 10) H 02/09/19 03:15 3.1 g/dL (3.5-5.7) L 02/09/19 03:15 4.0 g/dL (2.4-3.5) H 02/09/19 03:15 0.8 (1.1-2.2) L 02/09/19 03:15 2.89 ng/mL (0.00-0.15) H 02/11/19 14:08 Red (Yellow) A 02/10/19 19:55 Turbid (Clear) A 02/10/19 19:55 Ur Specific [place] 1.030 (1.010-1.025) H 02/10/19 19:55 >=300 mg/dL (Neg-Trace) H 02/10/19 19:55 Trace mg/dL (Negative) H 02/10/19 19:55 Large (Negative) H 02/10/19 19:55 Small (Negative) H 02/10/19 19:55 Ur Leukocyte Esterase Large (Negative) H 02/10/19 19:55 TNTC per hpf (0-3) H 02/10/19 19:55 TNTC per hpf (0-3) H 02/10/19 19:55 Ur Squamous Epith Cells Many per lpf (None-Few) H 02/10/19 19:55 Many per hpf (None Seen) H 02/10/19 19:55 Crossmatch See Detail 02/12/19 15:54
[2019-02-13] MEDS ORDERED: Isovue-370 500 ML BOTTLE IVP ONE ×2 (13:10)
--- NOTE | 2019-02-13 15:41 | Oncology Inp Consult Note ---
<Zenia Reyes L - Last Filed: 02/13/19 18:03> Date of Encounter: 02/13/19 Time of Encounter: 18:03 Assessment and Plan (1) Pelvic mass Status: Acute Assessment and plan: Pelvic mass with abdominal pain. Hypermetabolic pelvic mass noted on PET scan from [facility]. No GI source found on colonoscopy at [facility] on 01/01/19. Heterogeneous hypermetabolic activity noted in liver and lymph nodes in neck on PET at [facility]. CT soft tissue neck without contrast (due to CKD) 01/16/19 Notes no gross evidence of significant cervical lymphadenopathy on this noncontrast CT scan abdomen/pelvis wo contrast 02/09/2019 notes no change in poorly defined pelvic mass Plan: No tissue diagnosis as of yet, patient was planned to follow up with [facility] ON[facility], Dr. Sanchez, on 01/22/19, however missed appointment during to recurrent admission and worsening functional status She continues to report significant abdominal discomfort, likely secondary to mass Discussed case with Dr. Naidu-recommend transfer to tertiary care center for benefits director/onc evaluation and treatment Continue with supportive treatment - Data of Consult Requesting Physician: Juany Naidu MD Primary Care Provider: Monalisa Schneider MD - Consult Narrative Reason for consult: Pelvic Mass History of present illness: Ms. Monika Bowers, a 78 yo female who is known to our service after CT imaging revealed pelvic mass in December,. She was transferred to [facility] for evaluation. She was admitted at [facility] from 12/29/18-01/10/19. She had a PET scan at [facility] that showed hypermetabolic mass in the pelvis, and she had an elevated HT161=[id number]. She also had a colonoscopy, which showed no evidence of GI source. At that time she was also treated with a course of antibiotics for suspected aspiration pneumonia following her colonoscopy her baseline renal function during that hospitalization was 2.2-2.7 according to the [facility] records, the patient had a transvaginal ultrasound showing "complex pelvic mass that may be uterine or ovarian origin, unopacified bowel cannot be excluded." per report, the mass measured 7.5 cm x 4.4 cm x 3.25 cm. She was to follow-up with [facility] ECONOM[facility] oncology, Dr. SANCHEZ, on 01/22/2019, however, was not able to follow up due to recurrent admission to [facility] as described below. [facility] labs: CEA: 27.1 CA-125: 241 CA19-9: 18.92 Patient was recently admitted to [place] in January and discharged on 02/05/2019. she was treated for acute metabolic encephalopathy secondary to PNA and UTI with improvement of her mental status. She was also found to have cirrhosis and acute hepatitis A infection which was treated with conservative management. She presented to [facility] ED on 02/09/2019 for AMS. She was noted to have leukocytosis and symptoms concerning for UTI. in the ED she was found to have leukocytosis with neutrophilic predominance and she complained of burning and pain while urinating. Pro-calcitonin was 2.32. ID has been consulted for sepsis and further recommendations. Neurology consulted for metabolic encephalopathy. Past Med Surg Social Fam HX - Past Medical History Medical history: CHF, hepatitis, hyperlipidemia, hypertension, liver disease, renal disease, thyroid disease Additional medical history: unable to ask patient her medical hx, shes not a/o x3 to answer qustions. Psychiatric history: no psych history - Past Surgical History Surgical History: non-contributory Additional surgical history: unable to ask patient her medical hx, shes not a/o x3 to answer qustions. - Social History Smoking Status: Never smoker Smokeless Tobacco Status: No Alcohol use: none Drug use: none Medications and Allergies Allopurinol [Zyloprim 100 MG] 100 mg PO BID 01/11/19 [History] Cholecalciferol (Vitamin D3) [Vitamin D3] 2,000 unit PO DAILY 01/11/19 [History] Gabapentin [Neurontin] 300 mg PO TID 01/11/19 [History] Levothyroxine [Levothyroxine Sodium] 137 mcg PO DAILY 01/11/19 [History] Sertraline [Zoloft] 100 mg PO DAILY 01/11/19 [History] Metoprolol Tartrate [Lopressor] 50 mg PO BID 01/13/19 [History] amLODIPine [Norvasc] 2.5 mg PO DAILY tablet 02/05/19 [Rx] Oxycodone HCl [Roxybond] 5 mg PO Q4H PRN 02/10/19 [History] Fluconazole [Diflucan] 200 mg PO DAILY tablet 02/14/19 [Rx] Allergy/AdvReac Type Severity Reaction Status Date / Time No Known Allergies Allergy Verified 02/09/19 04:34 ROS unobtainable: due to mental status Oncology - Exam - Constitutional General appearance: cooperative, obese, no febrile Exam: appears uncomfortable due to abdominal pain - ENT ENT exam: Present: mucous membranes moist, normal oropharynx - Respiratory Respiratory exam: Present: CTAB. Absent: respiratory distress - Cardiovascular Cardiovascular exam: Present: RRR - GI/Abdominal GI/Abdominal exam: Present: normal bowel sounds, soft Additional comments: mildly distended, tenderness to palpation of suprapubic area - Extremities Exam Extremities exam: Present: normal inspection. Absent: calf tenderness - Neurological Exam Neurological exam: Present: alert, no focal deficits, strengths equal and symetr throughout Additional comments: oriented to person and place - Psychiatric Psychiatric exam: Present: anxious - Skin Skin exam: Present: dry, intact, normal color, warm Consult Discharge Plan - Plan Referrals: Monalisa Schneider MD [Primary Care Provider] - ([facility]) Inpatient Charges Provider: Dr. Yudelka Mahan <Saul Mahan - Last Filed: 02/14/19 11:40> Date of Encounter: 02/14/19 - Data of Consult Requesting Physician: Juany Naidu MD Primary Care Provider: Monalisa Schneider MD - Attending Attestation Patient seen and examined bedside. She c/o abdominal pain. Referred to [facility] to see BUILDING ECONOMIST ONC, patient has not been seen yet. She has CKD, dialysis, CT imaging findings obtained later today shows ~14cm pelvic mass 'extending from sacrum displacing uterus anteriorly.' Obtain tissue diagnosis to help traet pain/AMS. Malignant process, BUILDING ECONOMIST/sarcoms to be considered, recommend Jewelry Salesperson surgery evaluation at [facility]. Tumor marker results not available, to be obtained. I examined this patient and my medical decision-making was reviewed with the Advanced Practice Nurse, Zenia Reyes. I agree with the documented findings, disposition and treatment plan as described except to the extent set forth below. Inpatient Charges Provider: Dr. Yudelka Mahan Consult - Inpatient: [id number]
[2019-02-14] MEDS: *HR* OxyCODONE/APAP 5/325 TABLET PO PRN ×2 (03:27→16:12)
[2019-02-14] MEDS: Piperacillin/Tazobactam 3.375 GM in 0.9 % Sodium Chloride Mini Bag 100 ML IVPB SCH (05:57)
[2019-02-14 06:09] LABS: Basophils % 0.3 %; Eosinophils # 0.1 K/mcL (0.0-0.6); Eosinophils % 0.8 %; Hematocrit 30.3 % (35.3-44.9); Hemoglobin 9.7 g/dL (11.5-15.4); Immature Granulocytes % 0.9 % (0-4); Lymphocytes # 0.6 K/mcL (0.6-4.6); Lymphocytes % 3.5 %; Mean Corpuscular Hemoglobin 30.7 pg (28.0-33.3); Mean Corpuscular Volume 95.9 fL (83.0-100.0); Mean Platelet Volume 9.8 fL (9.4-12.4); Monocytes # 1.3 K/mcL (0.0-1.3); Monocytes % 8.1 %; Neutrophils # 13.7 K/mcL (1.6-8.9); Platelet Count 246 K/mcL (140-400); Red Blood Count 3.16 M/mcL (3.82-4.97); Red Cell Distribution Width 16.4 % (11.5-14.5); Segmented Neutrophils % 86.4 %
[2019-02-14 06:47] LABS: Calcium 8.5 mg/dL (8.6-10.3); Potassium 3.3 mEq/L (3.5-5.1)
[2019-02-14] MEDS ORDERED: 0.9 % Sodium Chloride 250 ML IVC PRN (08:14)
[2019-02-14] MEDS ORDERED: *HR* Heparin 10,000 UNIT/10 ML VIAL IV PRN ×2 (08:14)
[2019-02-14] MEDS ORDERED: 0.9 % Sodium Chloride 1,000 ML PRIME SCH (08:15)
--- NOTE | 2019-02-14 08:21 | Discharge Summary ---
Orders not resulted at time of discharge: Pending orders 02/09/19 07:34 Culture,Sputum with Gram Stain [RM] Stat 02/09/19 19:55 Culture,Urine [RM] Stat 02/12/19 10:42 Miscellaneous Lab Test Routine 02/15/19 04:00 Basic Metabolic Panel AM 040 CBC no Diff [Complete Blood Count w/o Diff] [HEME] AM 04002/16/19 04:00 Basic Metabolic Panel AM 040 CBC no Diff [Complete Blood Count w/o Diff] [HEME] AM 04002/17/19 04:00 Basic Metabolic Panel AM 040 CBC no Diff [Complete Blood Count w/o Diff] [HEME] AM 04002/18/19 04:00 Basic Metabolic Panel AM 040 CBC no Diff [Complete Blood Count w/o Diff] [HEME] AM 040 Date of Encounter: 02/14/19 Time of Encounter: 08:37 - Discharge Diagnosis (1) ESRD (end stage renal disease) on dialysis Priority: Secondary Status: Chronic (2) UTI (urinary tract infection) Priority: Primary Status: Acute Qualifiers: Urinary tract infection type: site unspecified Hematuria presence: without hematuria Qualified Code(s): N39.0 - Urinary tract infection, site not specified (3) Diastolic CHF Priority: Secondary Status: Chronic Qualifiers: Heart failure chronicity: chronic Qualified Code(s): I50.32 - Chronic diastolic (congestive) heart failure (4) Pelvic mass in female Priority: Secondary Status: Chronic Hospital course: Ms. Justin Bowers is a 78 year old female with history of cirrhosis, ESRD on HD, HFpEF 65% hypothyroidism and pelvic mass following at [facility] who presented to the ED with complaint of AMS on 02/09/2019. history is limited due to mental status. most of the history was obtained chart. as per chart review she was recently admitted [facility] january and discharged on february 05. she was treated for acute metabolic encephalopathy secondary to PNA and UTI with improvement of her mental status. she has a known pelvic mass and as per oncology recs and chart review she was to follow with [facility] onc Dr Sanchez on 01/22 for further evaluation and biopsy of the mass. She missed appointment due to pain and transportation. last admission she was also found to have cirrhosis and acute hepatitis A infection and GI was consulted who recommended conservative management. in the ED she was found to have leukocytosis with neutrophilic predominance and she complained of burning and pain while urinating. she was endorsed for admission for UTI and acute encephalopathy on 02/09. CT head in the ED negative for any acute disease. During hospitalization, patient complaining of persistent lower abdominal and the lower back pain 10 out of 10, constant, sharp debilitating her, unable to fall asleep. CT abdomen and pelvis on 02/13 showed Heterogeneous amorphous mass centered in the mid pelvis extending from presacral to anterior pelvic region approximately 14.8 x 10.0 x 13.4 cm. It is inseparable from loops of bowel in the pelvis as well as the uterus which is displaced anteriorly. Right ovary not visualized. This lesion was not apparent on the study from November 2018. Rapid development would favor aggressive malignancy such as sarcoma or mass of infectious etiology.. 2. A 4.9 x 3.6 cm left adnexal cyst with 1.4 cm solid mural nodule thought to represent left ovary. The appearance once further evaluation with ultrasound. 3. Interval development of intrahepatic biliary ductal dilatation and the common bile duct also appears prominent. This may be further assessed with MRCP if deemed clinically necessary. I discussed this case with oncologist to here they recommended transfer patient to [facility] we don't have [facility] oncology here. Patient had PET scan done at [facility]. I called [facility] transfer Center and Dr. Charles Accepted the transfer. Patient is discharge on stable condition. (1) Sepsis, unknown etiology, possible from UTI, resolved Current Visit: Yes Status: Suspected Assessment and Plan: wbc count trending down. patient hemodynamically stable. patient being covered empirically with piperacillin/tazobactam 3.375mg/IV Q8HRs on fluconazole 200mg/PO daily urine culture: yeast species blood culture: no growth final report (2) Leukocytosis, unspecified Current Visit: Yes Status: Chronic Assessment and Plan: possible persistent leukocytosis due to chronic pelvic pain. (3) UTI (urinary tract infection) Current Visit: No Status: Acute Assessment and Plan: Urinary culture: yeast species. patient on fuconazole 200mg/PO daily plus Piperacillin/tazobactam 3.375mg/IV (4) Cirrhosis, recent hepatitis A, GI recommended supportive care Current Visit: No Status: Acute Assessment and Plan: Ammonia level within normal limits. Continue lactulose, titrate for 2-3 bowel movements a day. (5) Diastolic CHF with preserved EF Current Visit: No Status: Chronic Assessment and Plan: Patient is euvolemic. On hemodialysis. Fluid restriction to 1.5 L a day, plus a strict intake and output and daily weight. (6) Anemia ,for ESRD Current Visit: Yes Status: Chronic Assessment and Plan: H&H 7.7&25.2. had one unit of blood (7) Pelvic mass in female patient missed Appointment on 01/22, patient is new to Dr Ledesma, they rescheduled appt on 02/26, will consult Oncology Current Visit: No Status: Chronic Assessment and Plan: patient reporting 10/10 supra-pubic pain and lower ,back pain. on [place] 5- 325mg/PO 1tab PO Q6HR PRN pain sub optimally controlled. percocet 5/325mg PO 1tab Q8HR PRN added CT on 02/13 showing rapid growing tumor, transfer to [facility] oncology (8) Acute encephalopathy, neurology was consulted, they signed off, resolved Current Visit: Yes Status: Resolved (9) Hypothyroidism Current Visit: Yes Status: Acute Assessment and Plan: On levothyroxine 137 mcg/PO daily (10) Acute kidney injury superimposed on CKD 4, nephrology is on board, Dr Florez is planing for HD today, OP HD MWF Current Visit: No Status: Acute Assessment and Plan: nephro protective strategies. renal replacement therapy per nephrology team. DVT Prophylaxis: intermittent pneumatic compression for DVT prophylaxis. Discharge discussed with: patient Time spent discussing smoking cessation with patient: more than 10 minutes - Time Spent with Patient Total time spent providing and/or coordinating discharge services: Time spent: Greater than 30 minutes - Discharge Medications Prescriptions: New Fluconazole [Diflucan] 200 mg PO DAILY tablet Continued Cholecalciferol (Vitamin D3) [Vitamin D3] 2,000 unit PO DAILY Sertraline [Zoloft] 100 mg PO DAILY Levothyroxine [Levothyroxine Sodium] 137 mcg PO DAILY Gabapentin [Neurontin] 300 mg PO TID Allopurinol [Zyloprim 100 MG] 100 mg PO BID Metoprolol Tartrate [Lopressor] 50 mg PO BID amLODIPine [Norvasc] 2.5 mg PO DAILY tablet Oxycodone HCl [Roxybond] 5 mg PO Q4H PRN PRN Reason: Pain Home Medications: Allopurinol [Zyloprim 100 MG] 100 mg PO BID 01/11/19 [History] Cholecalciferol (Vitamin D3) [Vitamin D3] 2,000 unit PO DAILY 01/11/19 [History] Gabapentin [Neurontin] 300 mg PO TID 01/11/19 [History] Levothyroxine [Levothyroxine Sodium] 137 mcg PO DAILY 01/11/19 [History] Sertraline [Zoloft] 100 mg PO DAILY 01/11/19 [History] Metoprolol Tartrate [Lopressor] 50 mg PO BID 01/13/19 [History] amLODIPine [Norvasc] 2.5 mg PO DAILY tablet 02/05/19 [Rx] Oxycodone HCl [Roxybond] 5 mg PO Q4H PRN 02/10/19 [History] Fluconazole [Diflucan] 200 mg PO DAILY tablet 02/14/19 [Rx] Allergies/Adverse Reactions: Allergy/AdvReac Type Severity Reaction Status Date / Time No Known Allergies Allergy Verified 02/09/19 04:34 Date of admission: 02/10/19 15:34 Primary care physician: Monalisa Schneider MD Consults: 02/09/19 07:23 Consult to Nephrology [CONS] Routine Consulting Provider: Kidney Jessica/JODY/JEFFREY/YOSEF Reason for Consult: dialysis Call Completed: No 02/09/19 07:33 Consult to Case Management [CONS] Routine Comment: 02/09/19 07:34 Consult to Physical Therapy [CONS] Routine Comment: Evaluate, develop and implement POC Reason for Consult: dispostion Does patient have active BEDREST order?: No Is patient medically & hemodynamically stable?: Yes Patient assessed for mobility or mobilized this visit?: Yes OT [Consult to Occupational Therapy] [CONS] Routine Comment: Evaluate, develop and implement POC Reason for Consult: disposition Does patient have active BEDREST order?: No Is patient medically & hemodynamically stable?: Yes Patient assessed for mobility or mobilized this visit?: Yes 02/09/19 07:56 Consult to Drill Operator [CONS] Routine Reason for SW Consult: Pt is from [facility] 02/10/19 08:09 Consult to Nurse Navigator [CONS] Routine Comment: chf, hd 02/10/19 12:45 Consult to Dialysis [CONS] ONCE 02/11/19 07:46 Consult to Infectious Diseases [CONS] Routine Consulting Provider: Infectious Disease [facility] Reason for Consult: sepsis. possible UTI. elevated ESR, CRP Call Completed: No 02/11/19 17:38 Consult to Neurology [CONS] Routine Consulting Provider: [facility] Reason for Consult: ams Call Completed: No 02/12/19 08:45 Consult to Dialysis [CONS] ONCE 02/13/19 10:29 Consult to Drill Operator [CONS] Routine Reason for SW Consult: Pt confused; is she a patient of another test consultant? We may need a chair time for outpatient HD 02/13/19 11:26 Consult to Oncology Hematology [CONS] Routine Consulting Provider: Zenia Arboleda Reason for Consult: pelvic mass Call Completed: Yes 02/14/19 08:15 Consult to Dialysis [CONS] ONCE - Constitutional Vitals: Temp Pulse Resp BP Pulse Ox 98.8 F 83 16 124/70 97 02/14/19 07:00 02/14/19 07:00 02/14/19 07:00 02/14/19 07:00 02/14/19 07:00 General appearance: Present: A&O X 3 Exam: Vitals: Reviewed. General: Alert and oriented x2. Still in mild to moderate distress due to abdominal pain Cardiovascular: RRR, normal S1 & S2, no rubs, murmurs or gallops. Lungs: CTA b/l, no wheezes or crackles. Abdomen: Obese, soft, tenderness to superficial palpation in the supra-pubic area, no rigidity or guarding. Extremities: No edema Neurological: No focal neurological abnormalities Rest of the physical exam is non contributory - Patient Status Disposition: Transfer [facility] Condition: Good Functional capacity at discharge: independent ambulation Overall status at discharge: patient is not back to baseline - Discharge Instructions Follow Up With: Monalisa Schneider MD [Primary Care Provider] - ([facility]) - Diet and Activity Diet: other (renal diet)
[2019-02-14] MEDS: Thiamine (B-1) 100 MG TABLET PO SCH (09:28)
[2019-02-14] MEDS: Fluconazole 100 MG TABLET PO SCH (09:28)
[2019-02-14] MEDS: Folic Acid 1 MG TABLET PO SCH (09:28)
[2019-02-14] MEDS: Lactulose Oral Soln 20 GM/30 ML UDC PO SCH (09:28)
[2019-02-14] MEDS: *HR* HYDROcodone/Acet 5/325 mg TABLET PO PRN (09:28)
[2019-02-14] MEDS: Cholecalciferol (D-3) 1,000 UNIT TABLET PO SCH (09:28)
--- NOTE | 2019-02-14 13:09 | Nephrology Progress Note ---
Date of Encounter: 02/14/19 Time of Encounter: 13:09 - Assessment and Plan (1) Acute kidney injury superimposed on CKD Status: Acute Patient acute kidney injury that requires hemodialysis. The patient was seen on dialysis today. The plan is for her to be transferred to [facility] for further evaluation. (2) Anemia Status: Chronic Qualifiers: Anemia type: iron deficiency Iron deficiency anemia type: unspecified iron deficiency Qualified Code(s): D50.9 - Iron deficiency anemia, unspecified (3) Leukocytosis, unspecified Status: Chronic Qualifiers: Leukocytosis type: unspecified Qualified Code(s): D72.829 - Elevated white blood cell count, unspecified (4) CKD (chronic kidney disease), stage IV Status: Chronic Subjective Principal diagnosis: CHANI, acute encephalopathy Interval history: Patient seen. She has no new complaints. Seen on dialysis. Review of systems is stable. Objective - Vital Signs Vital signs: Vital Signs Temp Pulse Resp BP Pulse Ox 02/14/19 12:00 133/55 02/14/19 11:43 98.6 F 22 123/66 02/14/19 07:00 98.8 F 83 16 124/70 97 02/14/19 03:58 97.6 F 82 18 161/79 97 02/13/19 23:20 98.9 F 70 16 123/68 95 02/13/19 19:11 99.6 F 77 16 118/70 96 02/13/19 15:21 97.6 F 73 18 133/71 96 Intake and Output 02/13/19 02/14/19 02/14/19 23:59 07:59 15:59 Intake Total 100 / 470 700 / 700 Balance 100 / 470 700 / 700 Intake: IV Fluids 100 / 200 100 / 100 Zosyn 3.375 GM In 0.9 % Sodium 100 / 200 100 / 100 Chloride (Mini-Bag +) 100 ML @ 25 mls/hr IVPB Q12HR [facility] Rx#: [id number] Oral 0 / 0 Intake, Rinseback and Flushes 600 / 600 Other: Meal Breakfast Percent of Meal Consumed 0% Stool Size Moderate Stool Consistency loose liquid Stool Color Brown [place] # Urine Diapers 1 # Bowel Movement Diapers 1 1 Hemodialysis Net Fluid Removed 303 (mL) - General Appearance General appearance: Present: well-developed, well-nourished EENT: Present: ATNC Cardiology: Present: regular rate - Lab 02/14/19 05:47 02/14/19 05:47 Most recent lab results 02/14/19 05:47 Calcium 8.5 L Consult Discharge Plan - Plan Referrals: Monalisa Schneider MD [Primary Care Provider] - ([facility])
[2019-02-14] MEDS ORDERED: 0.9 % Sodium Chloride 1,000 ML ONE (14:34)
--- NOTE | 2019-02-14 15:01 | Infectious Disease Progress No ---
ID Progress Note Date of Encounter: 02/14/19 Time of Encounter: 10:00 - Subjective Subjective: Patient seen and examined. No acute events noted overnight. Patient complaining of middle lower back pain that is normal for her. Denies fevers, chills, or rigors. Denies chest pain, shortness of breath, or cough. Denies vomiting, diarrhea, or constipation. Reports some nausea this morning and states she didn't eat any breakfast. Denies abdominal pain or urinary complaints. Stat es she makes very little urine secondary to her ESRD. Denies oral thrush or any skin lesions. Pending transfer to [facility] once a bed is available. - Objective CBC & Chem 7: 02/14/19 05:47 02/14/19 05:47 - Line Documentation Line Documentation: Dialysis Catheter (Perma-cath noted to the right upper chest with transparent dressing C/D/I) - Exam Vitals: Temp Pulse Resp BP Pulse Ox 98.6 F 83 22 116/77 97 02/14/19 11:43 02/14/19 07:00 02/14/19 11:43 02/14/19 13:30 02/14/19 07:00 Exam: Head: Atraumatic, normal inspection, normocephalic. Eye: EOMI, PERRLA, no scleral icterus noted. ENT: Mucous membranes moist. No odontogenic infection noted. Neck: Normal inspection, no meningismus. Respiratory: Clear to auscultation. No rales, respiratory distress, rhonchi, or wheezes noted. Cardiovascular: Regular rate and rhythm, S1 and S2 audible. No murmurs, rubs, or gallops. GI: Soft, round, normal bowel sounds. Non-tender. Extremities: No joint swelling, pedal edema, or tenderness noted. Back: Normal inspection. No vertebral tenderness noted. Neurological: Alert, oriented 3, no focal deficits. Psychiatric: normal affect, normal mood. Skin: Dry, intact, warm. Normal color. No rashes. Additional physical exam findings: Perma-cath noted to the right upper chest with transparent dressing C/d/I. No erythema, warmth, tenderness, or drainage noted. - Assessment and Plan (1) Sepsis Current Visit: Yes Status: Suspected The patient has to sepsis criteria. Unclear. Infectious vs other. Improved. White blood cell count trending up. Afebrile overnight. Blood cultures drawn 02/09/19 are no growth to date 2. Qualifiers: Sepsis type: sepsis due to unspecified organism Qualified Code(s): A41.9 - Sepsis, unspecified organism SNOMED Code(s): 84055579 (2) UTI (urinary tract infection) Current Visit: No Status: Acute Causative organism: Unclear. Urinalysis appears purulent, but also contaminated and the patient is ESRD so she doesn't make much urine anyways so her urine will always appear pyuric. Urine culture is positive for Yeast species. I have asked micro to speciate and run sensitivities. Previous urine cultures positive for yeast, Enterococcus faecium, and Escherichia coli. Currently on fluconazole and Zosyn. Qualifiers: Urinary tract infection type: site unspecified Hematuria presence: without hematuria Qualified Code(s): N39.0 - Urinary tract infection, site not specified SNOMED Code(s): 31004454 (3) Encephalopathy acute Current Visit: No Status: Acute Etiology: Unclear. Sepsis versus other. Ammonia level normal. No meningeal signs. CT head negative. Appears improved. Neurology consulted and signed off. SNOMED Code(s): 01820014, 692551826 (4) Pelvic mass Current Visit: No Status: Acute Etiology unclear. Concern for malignancy as this could be the cause of the patient's amina k/abdominal pain, elevated ESR and CRP, and elevated LDH. CT of the abdomen and pelvis with IV and oral contrast shows heterogeneous amorphous mass centered in the mid pelvis extending from presacral to anterior pelvic region approximately 14.8 x 10 x 13.4 cm. It is inseparable from loops of bowel in the pelvis as well as the uterus which is displaced anteriorly. Right ovary is not visualized. The lesion was not apparent on the study from November 2018 and rapid development would favor aggressive malignancy such as dark, or mass of infectious etiology. Hem/onc consulted. Recommend transfer to [facility] for evaluation by [facility]-Onc. Transfer pending. SNOMED Code(s): 36429218 (5) Cirrhosis Current Visit: No Status: Acute Qualifiers: Hepatic cirrhosis type: unspecified hepatic cirrhosis Ascites presence: without ascites Qualified Code(s): K74.60 - Unspecified cirrhosis of liver SNOMED Code(s): 05147035 (6) ESRD (end stage renal disease) on dialysis Current Visit: Yes Status: Chronic Nephrology consulted and following. SNOMED Code(s): 428275326 (7) Hypothyroidism Current Visit: Yes Status: Acute Qualifiers: Hypothyroidism type: acquired Qualified Code(s): E03.9 - Hypothyroidism, unspecified SNOMED Code(s): 32131363 (8) Abdominal pain Current Visit: No Status: Acute Etiology not clear CT abdomen and pelvis on admission 02/09/2019 done without contrast and showed a pelvic mass. Repeat CT of the abdomen and pelvis 02/13/19 as above. Likely the source of the patient's pain. Improved. Qualifiers: Abdominal location: generalized Qualified Code(s): R10.84 - Generalized abdominal pain SNOMED Code(s): 71269292 (9) Congestive heart failure Current Visit: No Status: Acute Qualifiers: Heart failure type: systolic Heart failure chronicity: acute Qualified Code(s): I50.21 - Acute systolic (congestive) heart failure SNOMED Code(s): 38601492 (10) Pulmonary edema Current Visit: Yes Status: Acute Qualifiers: Chronicity: chronic Qualified Code(s): J81.1 - Chronic pulmonary edema SNOMED Code(s): 31066228 - Recommendations Recommendations: Await blood cultures to finalize. Await urine culture to finalize. Transfer for [facility]-onc evaluation. ESRD management per nephrology. Continue zosyn 3.375 grams IV Q12H. Continue fluconazole 200mg PO daily. Duration of treatment depends on the clinical picture. Monitor renal function and dose-adjust antibiotics. Consult Discharge Plan - Plan Referrals: Monalisa Schneider MD [Primary Care Provider] - ([facility]) - Attending Attestation I have personally performed a face to face evaluation on this patient. I have reviewed and agree with the care plan. History and Exam by me shows: Assessment and plan: Sepsis Encephalopathy Pelvic mass Liver cirrhosis End-stage renal disease on hemodialysis Recommendations Continue Zosyn and fluconazole for now Patient is to be transferred for obstetrics gynecology oncology team at [facility] to evaluate the pelvic mass
[2019-02-14 15:51] VITALS: BP 144/83
== END 2019-02-14 16:35 | disposition other institution (70) | DRG 871 ==
LOC: 2ANU 02:40 → EMEROOARM 02:40 → SUATTDRO 06:00 → 2ANU 06:47 → SUATTDRO 02-10 15:34
PROVIDERS: ADMIT Pediatrics; ATTEND Hospitalist